=== PATIENT | male | born 1980 | race African-American/Black ===

== ENCOUNTER 2016-12-26 18:45 | Emergency (ER) | payer OTHER ==
[~2016-12-26] VITALS: Ht 177.8 cm; Wt 70.3 kg
[~2016-12-26 18:45] MED LIST: DEPAKOTE; KLONOPIN; ZYPREXA
--- NOTE | 2016-12-26 18:45 | NUR ---
MEDICAL CLEARANCE FOR [facility] VNSCOT[facility] NOTED, VSS, WAITING FOR MD EVAL.
[2016-12-26 19:41] LABS: BASOPHILS # (AUTO) 0.1 /CMM (0.0-0.2); BASOPHILS % (AUTO) 1.3 % (0.0-2.0); EOSINOPHILS # (AUTO) 0.1 /CMM (0.0-0.7); EOSINOPHILS % (AUTO) 0.7 % (0.0-6.0); HEMATOCRIT 49 % (39-51); HEMOGLOBIN 16.5 g/dL (13.5-17.5); LYMPHOCYTES # (AUTO) 2.5 /CMM (0.8-4.8); LYMPHOCYTES % (AUTO) 25.6 % (20.0-44.0); MEAN CORPUSCULAR HEMOGLOBIN 31 PG (26.0-33.0); MEAN CORPUSCULAR HGB CONC 34 g/dl (31.0-36.0); MEAN CORPUSCULAR VOLUME 92 fL (80-96); MONOCYTES # (AUTO) 0.4 /CMM (0.1-1.30); MONOCYTES % (AUTO) 3.7 % (2.0-12.0); NEUTROPHILS # (AUTO) 6.8 /CMM (1.8-8.9); NEUTROPHILS % (AUTO) 68.7 % (43.0-81.0); PLATELET COUNT (AUTO) 235 /CMM (150-450); RDW COEFFICIENT OF VARIATION 14.1 (11.5-15.0); WHITE BLOOD COUNT (AUTO) 9.9 K/uL (4.3-11.0)
[2016-12-26 19:59] LABS: ALANINE AMINOTRANSFERASE 24 U/L (12-78); ALBUMIN 4.3 g/dL (3.4-5.0); ALCOHOL, BLOOD < 3 mg/dL (0-0); ALKALINE PHOSPHATASE 96 U/L (46-116); ASPARTATE AMINOTRANSFERASE 35 U/L (15-37); BILIRUBIN,DIRECT 0.1 mg/dL (0.0-0.2); BILIRUBIN,TOTAL 0.6 mg/dL (0.2-1.0); CALCIUM, SERUM 9.7 mg/dL (8.5-10.1); CARBON DIOXIDE 30 mmol/L (21-32); CHLORIDE 102 mmol/L (98-107); CREATININE 1.2 mg/dL (0.6-1.3); GLUCOSE 87 mg/dL (74-106); POTASSIUM 3.9 mmol/L (3.5-5.1); SALICYLATE 3.5 mg/dL (2.8-20.0); SODIUM SERUM 139 mmol/L (136-145); TOTAL PROTEIN, SERUM 8.3 g/dL (6.4-8.2); UREA NITROGEN, BLOOD 18 mg/dL (7-18)
[2016-12-26 20:08] LABS: APPEARANCE,URINE CLEAR (CLEAR); BILIRUBIN,URINE NEGATIVE (NEGATIVE); BLOOD, URINE NEGATIVE Ery/uL (NEGATIVE); COLOR,URINE YELLOW (YELLOW); KETONES,URINE TRACE (NEGATIVE); LEUKOCYTE ESTERASE ,URINE NEGATIVE (NEGATIVE); NITRITE, URINE NEGATIVE (NEGATIVE); PROTEIN,URINE NEGATIVE (NEGATIVE); UGLUCOSE NEGATIVE (NEGATIVE); UROBILINOGEN,URINE 0.2 EU/dL (0.2)
[2016-12-26 20:09] LABS: ACETAMINOPHEN < 2 ug/ml (10-30)
[2016-12-26 20:49] LABS: BACTERIA,URINE None seen /HPF (None Seen); RBC,URINE NONE SEEN /HPF (0-2); SQUAMOUS EPITHELIAL CELL,UR Few /HPF (None Seen); WBC,URINE NONE SEEN /HPF (0-3)
--- NOTE | 2016-12-26 21:59 | NUR ---
Patient is resting comfortably in bed with eyes closed. Easily aroused. VSS
[2016-12-26 22:22] VITALS: BP 139/87
== END 2016-12-26 22:25 | disposition home or self-care (01) ==
LOC: ER 18:51
DX: F32.9 Major depressive disorder, single episode, unspecified (principal); R45.851 Suicidal ideations; F17.200 Nicotine dependence, unspecified, uncomplicated; F31.9 Bipolar disorder, unspecified; Z98.890 Other specified postprocedural states
CPT/HCPCS: 36415; 80048; 80076; 80305; 80329; 81001; 85025; 99284; A4606; G0480 ×2; Z7610; 81000-TC

== ENCOUNTER 2017-01-07 05:59 | Emergency (ER) | payer OTHER ==
--- NOTE | 2017-01-07 06:32 | NUR ---
CALLED FOR PT IN WR. INFORMED PT STEPPED OUT FOR CIGARETTE.
--- NOTE | 2017-01-07 06:57 | NUR ---
INFORMED BY ADMITTING STAFF PT LEFT.
== END 2017-01-07 06:59 | disposition left against medical advice (07) ==
LOC: ER 06:03
DX: Z53.21 Procedure and treatment not carried out due to patient leaving prior to being seen by health care provider (principal)

== ENCOUNTER 2017-02-11 17:14 | Emergency (ER) | payer OTHER ==
[~2017-02-11] VITALS: Ht 177.8 cm; Wt 72.6 kg
--- NOTE | 2017-02-11 17:20 | NUR ---
FOR MEDICAL CLEARANCE, PATIENT STATES THAT HE IS DEPRESSED ,PER PT " I WANT PACIFICA, WHEN I'M MEDICALLY CLEARED", NAD NOTED, VSS, RESP EVEN AND UNLABORED, WAITING FOR MD NJ
--- NOTE | 2017-02-11 18:40 | NUR ---
CALLED GABRIELLA FOR CRISIS TEAM NASREENALSONY, ETA ONE HOUR
[2017-02-11 18:54] LABS: BASOPHILS % (AUTO) 0.5 % (0.0-2.0); EOSINOPHILS # (AUTO) 0.1 /CMM (0.0-0.7); EOSINOPHILS % (AUTO) 0.7 % (0.0-6.0); HEMATOCRIT 43 % (39-51); HEMOGLOBIN 14.9 g/dL (13.5-17.5); LYMPHOCYTES # (AUTO) 2.7 /CMM (0.8-4.8); LYMPHOCYTES % (AUTO) 33.1 % (20.0-44.0); MEAN CORPUSCULAR HEMOGLOBIN 31 PG (26.0-33.0); MEAN CORPUSCULAR HGB CONC 35 g/dl (31.0-36.0); MEAN CORPUSCULAR VOLUME 89 fL (80-96); MONOCYTES # (AUTO) 0.5 /CMM (0.1-1.30); MONOCYTES % (AUTO) 6.8 % (2.0-12.0); NEUTROPHILS # (AUTO) 4.8 /CMM (1.8-8.9); NEUTROPHILS % (AUTO) 58.9 % (43.0-81.0); PLATELET COUNT (AUTO) 286 /CMM (150-450); WHITE BLOOD COUNT (AUTO) 8.1 K/uL (4.3-11.0)
[2017-02-11 18:55] LABS: APPEARANCE,URINE Clear (CLEAR); BILIRUBIN,URINE Negative (NEGATIVE); BLOOD, URINE Negative Ery/uL (NEGATIVE); COLOR,URINE Yellow (YELLOW); KETONES,URINE Negative (NEGATIVE); LEUKOCYTE ESTERASE ,URINE Negative (NEGATIVE); NITRITE, URINE Negative (NEGATIVE); PH,URINE 6.5 (5.0-8.0); PROTEIN,URINE Negative (NEGATIVE); UGLUCOSE Negative (NEGATIVE); UROBILINOGEN,URINE 0.2 EU/dL (0.2)
[2017-02-11 19:47] LABS: CALCIUM, SERUM 9.5 mg/dL (8.5-10.1); CREATININE 0.9 mg/dL (0.6-1.3); POTASSIUM 4.7 mmol/L (3.5-5.1)
[2017-02-11 19:53] LABS: ALBUMIN 3.9 g/dL (3.4-5.0); BILIRUBIN,DIRECT 0.1 mg/dL (0.0-0.2); BILIRUBIN,TOTAL 0.4 mg/dL (0.2-1.0); SALICYLATE 1.8 mg/dL (2.8-20.0); TOTAL PROTEIN, SERUM 8.1 g/dL (6.4-8.2)
--- NOTE | 2017-02-11 20:54 | NUR ---
REPORT GIVEN TO MAYCO, FROM [facility]
[2017-02-11 21:22] VITALS: BP 119/94
--- NOTE | 2017-02-11 21:29 | NUR ---
Patient Tr[facility] to [facility] Physician: DR. LAMB.
== END 2017-02-11 21:28 ==
LOC: ER 17:17
DX: R45.851 Suicidal ideations (principal); F31.9 Bipolar disorder, unspecified; F17.210 Nicotine dependence, cigarettes, uncomplicated
CPT/HCPCS: 36415; 80048; 80076; 80305; 80329; 81001; 85025; 99285; 99406; A4606; G0480 ×2; J7030; Z7610; 81000-TC

== ENCOUNTER 2017-02-18 02:51 | Emergency (ER) | payer OTHER ==
[~2017-02-18] VITALS: Ht 177.8 cm; Wt 72.6 kg
--- NOTE | 2017-02-18 03:21 | NUR ---
BB SELF; SI WITH PLAN, I WANT TO OD ON RX PILLS. PT AOX3 RR EVEN AND UNLABORED. NO SOB NOTED NAD NOTED. NO NVD AT THIS TIME. PT NOT DIAPHORETIC. PT WAITING FOR MD NJ. PT PLACED ON SAFETY PRECAUTIONS.
--- NOTE | 2017-02-18 03:22 | NUR ---
INFORMED LAB FOR BLOOD DRAW
[2017-02-18 03:39] LABS: BASOPHILS % (AUTO) 0.4 % (0.0-2.0); EOSINOPHILS # (AUTO) 0.1 /CMM (0.0-0.7); EOSINOPHILS % (AUTO) 0.7 % (0.0-6.0); HEMATOCRIT 44 % (39-51); HEMOGLOBIN 14.5 g/dL (13.5-17.5); LYMPHOCYTES # (AUTO) 2.1 /CMM (0.8-4.8); LYMPHOCYTES % (AUTO) 23.3 % (20.0-44.0); MEAN CORPUSCULAR HEMOGLOBIN 31 PG (26.0-33.0); MEAN CORPUSCULAR HGB CONC 33 g/dl (31.0-36.0); MEAN CORPUSCULAR VOLUME 92 fL (80-96); MONOCYTES # (AUTO) 0.5 /CMM (0.1-1.30); MONOCYTES % (AUTO) 5.7 % (2.0-12.0); NEUTROPHILS # (AUTO) 6.4 /CMM (1.8-8.9); NEUTROPHILS % (AUTO) 69.9 % (43.0-81.0); PLATELET COUNT (AUTO) 392 /CMM (150-450); RDW COEFFICIENT OF VARIATION 13.8 (11.5-15.0); RED BLOOD CELL COUNT(AUTO) 4.75 MIL/uL (4.5-6.0); WHITE BLOOD COUNT (AUTO) 9.1 K/uL (4.3-11.0)
[2017-02-18 03:58] LABS: ALANINE AMINOTRANSFERASE 33 U/L (12-78); ALBUMIN 3.9 g/dL (3.4-5.0); ALCOHOL, BLOOD < 3 mg/dL (0-0); ALKALINE PHOSPHATASE 86 U/L (46-116); ASPARTATE AMINOTRANSFERASE 22 U/L (15-37); BILIRUBIN,DIRECT 0.1 mg/dL (0.0-0.2); BILIRUBIN,TOTAL 0.2 mg/dL (0.2-1.0); CALCIUM, SERUM 9.3 mg/dL (8.5-10.1); CARBON DIOXIDE 32 mmol/L (21-32); CHLORIDE 106 mmol/L (98-107); CREATININE 1.4 mg/dL (0.6-1.3); GLUCOSE 112 mg/dL (74-106); POTASSIUM 4.3 mmol/L (3.5-5.1); SODIUM SERUM 143 mmol/L (136-145); UREA NITROGEN, BLOOD 16 mg/dL (7-18)
[2017-02-18 04:00] LABS: ACETAMINOPHEN 0 ug/ml (10-30); SALICYLATE 1.3 mg/dL (2.8-20.0)
[2017-02-18 05:15] LABS: APPEARANCE,URINE CLEAR (CLEAR); BILIRUBIN,URINE NEGATIVE (NEGATIVE); BLOOD, URINE NEGATIVE Ery/uL (NEGATIVE); COLOR,URINE YELLOW (YELLOW); KETONES,URINE TRACE (NEGATIVE); LEUKOCYTE ESTERASE ,URINE NEGATIVE (NEGATIVE); NITRITE, URINE NEGATIVE (NEGATIVE); PH,URINE 7.5 (5.0-8.0); PROTEIN,URINE NEGATIVE (NEGATIVE); UGLUCOSE NEGATIVE (NEGATIVE)
[2017-02-18 05:21] LABS: BACTERIA,URINE None seen /HPF (None Seen); RBC,URINE NONE SEEN /HPF (0-2); SQUAMOUS EPITHELIAL CELL,UR Rare /HPF (None Seen); WBC,URINE 0-2 /HPF (0-3)
--- NOTE | 2017-02-18 05:30 | NUR ---
ART AT BEDSIDE SPEAKING TO PT FOR EVAL.
--- NOTE | 2017-02-18 07:18 | NUR ---
REPORT GIVEN TO GRACIELA WINTERS FOR PRINCE
--- NOTE | 2017-02-18 07:45 | NUR ---
Patient is resting comfortably in bed with eyes closed. Easily aroused. VSS
--- NOTE | 2017-02-18 09:34 | NUR ---
Patient is resting comfortably in bed with eyes closed. Easily aroused. VSS
[2017-02-18 11:20] VITALS: BP 128/75
--- NOTE | 2017-02-18 11:27 | NUR ---
CALL BACK FROM [facility], ACEPTED BY DR LAMB
--- NOTE | 2017-02-18 11:38 | NUR ---
DULCE MARIA CALLED, ETA 1245 PER [place]
--- NOTE | 2017-02-18 12:40 | NUR ---
REPORT GIVEN TO ANALI [facility] OF [facility]. REPORT ALSO GIVEN TO SURAJ JURADO [facility] FOR TRANSPORT.
== END 2017-02-18 13:00 ==
LOC: ER 02:55
DX: R45.851 Suicidal ideations (principal); F31.9 Bipolar disorder, unspecified; F19.10 Other psychoactive substance abuse, uncomplicated; F12.10 Cannabis abuse, uncomplicated; F14.10 Cocaine abuse, uncomplicated; F10.10 Alcohol abuse, uncomplicated; F17.200 Nicotine dependence, unspecified, uncomplicated; Z98.890 Other specified postprocedural states
CPT/HCPCS: 36415; 80048; 80076; 80305; 80329; 81001; 85025; 99285; A4606; G0480 ×2; Z7610; 81000-TC

== ENCOUNTER 2017-03-22 03:21 | Emergency (ER) | payer OTHER ==
[~2017-03-22] VITALS: Ht 177.8 cm; Wt 77.1 kg
--- NOTE | 2017-03-22 03:26 | NUR ---
PT TO ER BED 6. PT BIBRA FROM A GAS STATION +ETOH C/O ABD PAIN. PT PLACED ON HAT PRESSER. VSS/RESP EVEN UNLABORED/NAD NOTED/SKIN WARM AND DRY/DENIES N-V-D/AOX4. AWAITING MD NJ.
--- NOTE | 2017-03-22 03:40 | NUR ---
LAB AT BEDSIDE FOR DRAW.
[2017-03-22 03:48] LABS: BASOPHILS # (AUTO) 0.1 /CMM (0.0-0.2); BASOPHILS % (AUTO) 1.4 % (0.0-2.0); EOSINOPHILS # (AUTO) 0.1 /CMM (0.0-0.7); EOSINOPHILS % (AUTO) 1.6 % (0.0-6.0); HEMATOCRIT 41 % (39-51); HEMOGLOBIN 13.8 g/dL (13.5-17.5); LYMPHOCYTES # (AUTO) 3.5 /CMM (0.8-4.8); LYMPHOCYTES % (AUTO) 39.3 % (20.0-44.0); MEAN CORPUSCULAR HEMOGLOBIN 31 PG (26.0-33.0); MEAN CORPUSCULAR HGB CONC 34 g/dl (31.0-36.0); MEAN CORPUSCULAR VOLUME 90 fL (80-96); MONOCYTES # (AUTO) 0.4 /CMM (0.1-1.30); MONOCYTES % (AUTO) 4.8 % (2.0-12.0); NEUTROPHILS # (AUTO) 4.7 /CMM (1.8-8.9); NEUTROPHILS % (AUTO) 52.9 % (43.0-81.0); PLATELET COUNT (AUTO) 253 /CMM (150-450); RDW COEFFICIENT OF VARIATION 15.2 (11.5-15.0); RED BLOOD CELL COUNT(AUTO) 4.51 MIL/uL (4.5-6.0); WHITE BLOOD COUNT (AUTO) 8.9 K/uL (4.3-11.0)
[2017-03-22 03:57] LABS: CALCIUM, SERUM 9.5 mg/dL (8.5-10.1); CREATININE 1.2 mg/dL (0.6-1.3); POTASSIUM 3.3 mmol/L (3.5-5.1)
[2017-03-22 04:03] LABS: ALBUMIN 4.1 g/dL (3.4-5.0); BILIRUBIN,DIRECT 0.1 mg/dL (0.0-0.2); BILIRUBIN,TOTAL 0.4 mg/dL (0.2-1.0); TOTAL PROTEIN, SERUM 7.8 g/dL (6.4-8.2)
[2017-03-22 04:04] LABS: SALICYLATE 1.6 mg/dL (2.8-20.0)
--- NOTE | 2017-03-22 06:01 | NUR ---
PT RESTING QUIETLY, AROUSES TO VOICE. VSS.
--- NOTE | 2017-03-22 07:05 | NUR ---
UNABLE TO OBTAIN URINE FROM PATIENT, MADE AWARE. NO NEW ORDERS RECEIVED.
--- NOTE | 2017-03-22 07:25 | NUR ---
ENDORSED TO GRACIELA MELENDREZ FOR [facility].
--- NOTE | 2017-03-22 07:37 | NUR ---
PATIENT ON BED, ASLEEP. CONNECTED TO TELE MONITOR. VSS
[2017-03-22 12:11] VITALS: BP 126/74
--- NOTE | 2017-03-22 12:11 | NUR ---
Patient discharged to home in stable condition. Written and verbal after care instructions given. Patient verbalizes understanding of instruction.
== END 2017-03-22 12:12 | disposition home or self-care (01) ==
LOC: ER 03:22
DX: F19.10 Other psychoactive substance abuse, uncomplicated (principal); F32.9 Major depressive disorder, single episode, unspecified; F17.200 Nicotine dependence, unspecified, uncomplicated; Z98.890 Other specified postprocedural states
CPT/HCPCS: 36415; 80048-TC; 80076-TC; 85025-TC; A4606; G0480; Z7610

== ENCOUNTER 2017-04-01 03:52 | Emergency (ER) | payer OTHER ==
[~2017-04-01] VITALS: Ht 172.7 cm; Wt 70.3 kg
--- NOTE | 2017-04-01 03:55 | NUR ---
BIBRA 909 C/O "HEARING VOICES" PT DENIES SI /HI. NO SOB. NO PAIN. VSS NAD WILL CONTINUE TO MONITOR FOR ANY CHANGES
[2017-04-01 04:32] LABS: BASOPHILS # (AUTO) 0.1 /CMM (0.0-0.2); BASOPHILS % (AUTO) 0.9 % (0.0-2.0); EOSINOPHILS # (AUTO) 0.1 /CMM (0.0-0.7); EOSINOPHILS % (AUTO) 1.8 % (0.0-6.0); HEMATOCRIT 41 % (39-51); HEMOGLOBIN 13.9 g/dL (13.5-17.5); LYMPHOCYTES # (AUTO) 2.6 /CMM (0.8-4.8); LYMPHOCYTES % (AUTO) 39.6 % (20.0-44.0); MEAN CORPUSCULAR HEMOGLOBIN 31 PG (26.0-33.0); MEAN CORPUSCULAR HGB CONC 34 g/dl (31.0-36.0); MEAN CORPUSCULAR VOLUME 91 fL (80-96); MONOCYTES # (AUTO) 0.5 /CMM (0.1-1.30); MONOCYTES % (AUTO) 7.1 % (2.0-12.0); NEUTROPHILS # (AUTO) 3.4 /CMM (1.8-8.9); NEUTROPHILS % (AUTO) 50.6 % (43.0-81.0); PLATELET COUNT (AUTO) 276 /CMM (150-450); RDW COEFFICIENT OF VARIATION 15.5 (11.5-15.0); RED BLOOD CELL COUNT(AUTO) 4.45 MIL/uL (4.5-6.0); WHITE BLOOD COUNT (AUTO) 6.6 K/uL (4.3-11.0)
[2017-04-01 04:42] LABS: CALCIUM, SERUM 9.3 mg/dL (8.5-10.1); CREATININE 0.9 mg/dL (0.6-1.3)
[2017-04-01 04:47] LABS: ALBUMIN 3.9 g/dL (3.4-5.0); BILIRUBIN,DIRECT 0.1 mg/dL (0.0-0.2); BILIRUBIN,TOTAL 0.2 mg/dL (0.2-1.0); TOTAL PROTEIN, SERUM 7.9 g/dL (6.4-8.2)
[2017-04-01 04:49] LABS: SALICYLATE 2.7 mg/dL (2.8-20.0)
--- NOTE | 2017-04-01 04:50 | NUR ---
LAB AT BEDSIDE FOR BLOOD DRAW
--- NOTE | 2017-04-01 04:55 | NUR ---
PT SLEEPING IN BED WITH NO CHANGE IN CONDITION
[2017-04-01 05:10] LABS: APPEARANCE,URINE CLEAR (CLEAR); BILIRUBIN,URINE NEGATIVE (NEGATIVE); BLOOD, URINE NEGATIVE Ery/uL (NEGATIVE); COLOR,URINE YELLOW (YELLOW); KETONES,URINE NEGATIVE (NEGATIVE); LEUKOCYTE ESTERASE ,URINE NEGATIVE (NEGATIVE); NITRITE, URINE NEGATIVE (NEGATIVE); PH,URINE 5.5 (5.0-8.0); PROTEIN,URINE NEGATIVE (NEGATIVE); UGLUCOSE NEGATIVE (NEGATIVE); UROBILINOGEN,URINE 0.2 EU/dL (0.2)
--- NOTE | 2017-04-01 05:32 | NUR ---
MESSENGER FLOORPERSON P/U URINE SAMPLE
--- NOTE | 2017-04-01 07:00 | NUR ---
PT IS SLEEPING COMFORTABLY IN BED WITH NO ISSUES. ALL NEEDS HAVE BEEN MET. PT IS STABLE. WILL ENDORSE CARE TO AM NURSE
--- NOTE | 2017-04-01 07:55 | NUR ---
CALLED BEVERLY OWENS FOR PSYCH EVAL
--- NOTE | 2017-04-01 09:35 | NUR ---
DON HIGGINS AT BEDSIDE
--- NOTE | 2017-04-01 10:52 | NUR ---
CALLED FOR TRANSPORT. ETA 1130
[2017-04-01 11:33] VITALS: BP 122/76
--- NOTE | 2017-04-01 11:37 | NUR ---
REPORT GIVEN TO EMT AT BEDSIDE. [facility]IV[facility] REPORT. PATIENT LEFT IN STABLE CONDITION WITH AMBULANCE.
== END 2017-04-01 11:39 ==
LOC: ER 03:56
DX: Z04.6 Encounter for general psychiatric examination, requested by authority (principal); F32.9 Major depressive disorder, single episode, unspecified; R45.851 Suicidal ideations; F19.10 Other psychoactive substance abuse, uncomplicated; F17.200 Nicotine dependence, unspecified, uncomplicated; Z60.2 Problems related to living alone
CPT/HCPCS: 36415; 80048; 80076; 80305; 80329; 81001; 85025; 99285; A4606; G0480 ×2; Z7610; 81000-TC

== ENCOUNTER 2017-05-11 02:11 | Emergency (ER) | payer OTHER ==
[~2017-05-11] VITALS: Ht 172.7 cm; Wt 65.8 kg
--- NOTE | 2017-05-11 02:20 | NUR ---
TO BED 11 A 37 YO MALE BBSELF AND REPORTS SI: "I WANT TO STAB MYSELF WITH A KNIFE. MY LIFE HAS JUST SO MUCH STRESS IN MY LIFE." PATIENT WITH HX OF BIPOLAR AND DEPRESSION. VSS. NAD NOTED. SKIN WARM AND DRY. DENIES ANY MEDICAL COMPLAINTS AT THIS TIME. SAFETY MEASURES IN PLACE.
--- NOTE | 2017-05-11 02:45 | NUR ---
UPHOLSTERER LIMOUSINE AND HEARSE Vida at bedside talking to patient.
[2017-05-11 02:50] LABS: BASOPHILS % (AUTO) 0.6 % (0.0-2.0); EOSINOPHILS # (AUTO) 0.1 /CMM (0.0-0.7); EOSINOPHILS % (AUTO) 1.1 % (0.0-6.0); HEMATOCRIT 45 % (39-51); HEMOGLOBIN 15.1 g/dL (13.5-17.5); LYMPHOCYTES # (AUTO) 2.6 /CMM (0.8-4.8); LYMPHOCYTES % (AUTO) 35.1 % (20.0-44.0); MEAN CORPUSCULAR HEMOGLOBIN 30 PG (26.0-33.0); MEAN CORPUSCULAR HGB CONC 34 g/dl (31.0-36.0); MEAN CORPUSCULAR VOLUME 90 fL (80-96); MONOCYTES # (AUTO) 0.6 /CMM (0.1-1.30); MONOCYTES % (AUTO) 8.2 % (2.0-12.0); PLATELET COUNT (AUTO) 267 /CMM (150-450); RDW COEFFICIENT OF VARIATION 15.1 (11.5-15.0); RED BLOOD CELL COUNT(AUTO) 4.97 MIL/uL (4.5-6.0); WHITE BLOOD COUNT (AUTO) 7.3 K/uL (4.3-11.0)
[2017-05-11 02:51] LABS: APPEARANCE,URINE CLEAR (CLEAR); BILIRUBIN,URINE NEGATIVE (NEGATIVE); BLOOD, URINE NEGATIVE Ery/uL (NEGATIVE); COLOR,URINE YELLOW (YELLOW); KETONES,URINE NEGATIVE (NEGATIVE); LEUKOCYTE ESTERASE ,URINE NEGATIVE (NEGATIVE); NITRITE, URINE NEGATIVE (NEGATIVE); PROTEIN,URINE NEGATIVE (NEGATIVE); UGLUCOSE NEGATIVE (NEGATIVE)
[2017-05-11 03:10] LABS: ALBUMIN 4.2 g/dL (3.4-5.0); BILIRUBIN,DIRECT 0.1 mg/dL (0.0-0.2); BILIRUBIN,TOTAL 0.4 mg/dL (0.2-1.0); CREATININE 1.2 mg/dL (0.6-1.3); POTASSIUM 4.2 mmol/L (3.5-5.1); TOTAL PROTEIN, SERUM 8.4 g/dL (6.4-8.2)
[2017-05-11 03:10] LABS: BACTERIA,URINE None seen /HPF (None Seen); RBC,URINE NONE SEEN /HPF (0-2); SQUAMOUS EPITHELIAL CELL,UR Rare /HPF (None Seen); WBC,URINE 0-2 /HPF (0-3)
--- NOTE | 2017-05-11 05:07 | NUR ---
Patient discharged in stable condition. Written and verbal after care instructions given. Patient verbalizes understanding of instruction and said [facility]. Obtained verbal safety contact from patient. Patient is ambulatory with steady gait. vss. nad noted. no further complaints.
[2017-05-11 05:08] VITALS: BP 140/87
== END 2017-05-11 05:08 | disposition home or self-care (01) ==
LOC: ER 02:11
DX: R45.851 Suicidal ideations (principal); F31.9 Bipolar disorder, unspecified; F15.10 Other stimulant abuse, uncomplicated; F12.10 Cannabis abuse, uncomplicated; F14.10 Cocaine abuse, uncomplicated; F19.10 Other psychoactive substance abuse, uncomplicated; F10.10 Alcohol abuse, uncomplicated; F17.200 Nicotine dependence, unspecified, uncomplicated; Z98.890 Other specified postprocedural states
CPT/HCPCS: 36415; 80048-TC; 80076-TC; 80305; 81000-TC; 85025-TC; A4606; G0480; Z7610

== ENCOUNTER 2017-06-11 06:11 | Emergency (ER) | payer OTHER ==
[~2017-06-11] VITALS: Ht 172.7 cm; Wt 68.0 kg
[2017-06-11 06:26] VITALS: BP 127/99
[2017-06-11 07:16] LABS: BASOPHILS # (AUTO) 0.1 /CMM (0.0-0.2); BASOPHILS % (AUTO) 0.7 % (0.0-2.0); EOSINOPHILS % (AUTO) 1.2 % (0.0-6.0); HEMATOCRIT 43 % (39-51); HEMOGLOBIN 14.7 g/dL (13.5-17.5); LYMPHOCYTES # (AUTO) 2.2 /CMM (0.8-4.8); LYMPHOCYTES % (AUTO) 27.9 % (20.0-44.0); MEAN CORPUSCULAR HGB CONC 34 g/dl (31.0-36.0); MEAN CORPUSCULAR VOLUME 89 fL (80-96); MONOCYTES # (AUTO) 0.2 /CMM (0.1-1.30); MONOCYTES % (AUTO) 2.2 % (2.0-12.0); NEUTROPHILS # (AUTO) 5.4 /CMM (1.8-8.9); PLATELET COUNT (AUTO) 291 /CMM (150-450); RDW COEFFICIENT OF VARIATION 14.9 (11.5-15.0); RED BLOOD CELL COUNT(AUTO) 4.85 MIL/uL (4.5-6.0)
[2017-06-11 07:26] LABS: CALCIUM, SERUM 9.5 mg/dL (8.5-10.1); CARBON DIOXIDE 30 mmol/L (21-32); CHLORIDE 104 mmol/L (98-107); CREATININE 1.2 mg/dL (0.6-1.3); GLUCOSE 65 mg/dL (74-106); POTASSIUM 4.2 mmol/L (3.5-5.1); SODIUM SERUM 139 mmol/L (136-145); UREA NITROGEN, BLOOD 15 mg/dL (7-18)
[2017-06-11 07:28] LABS: ALCOHOL, BLOOD < 3 mg/dL (0-0)
[2017-06-11 07:31] LABS: SALICYLATE 2.4 mg/dL (2.8-20.0)
== END 2017-06-11 11:58 ==
LOC: ER 06:14
DX: R45.851 Suicidal ideations (principal); F19.10 Other psychoactive substance abuse, uncomplicated; F20.9 Schizophrenia, unspecified; F31.9 Bipolar disorder, unspecified; F17.200 Nicotine dependence, unspecified, uncomplicated; Z60.2 Problems related to living alone
CPT/HCPCS: 36415; 80048-TC; 80305; 82600; 85025-TC; A4606; G0480; Z7610

== ENCOUNTER 2017-06-18 21:21 | Emergency (ER) | payer OTHER ==
[~2017-06-18] VITALS: Ht 172.7 cm; Wt 65.8 kg
--- NOTE | 2017-06-18 21:21 | NUR ---
[facility] C/O +SI - HI PLANS TO RUN INTO TRAFFIC. S NAD A/OX4. WILL CONTINUE TO MONITOR FOR ANY CHANGES DURING THE SHIFT.
--- NOTE | 2017-06-18 21:25 | NUR ---
CALLED PT IN WR X3. NO RESPONSE.
--- NOTE | 2017-06-18 21:59 | NUR ---
URINE COLLECTED. 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
[2017-06-18 22:43] LABS: BASOPHILS # (AUTO) 0.1 /CMM (0.0-0.2); BASOPHILS % (AUTO) 0.4 % (0.0-2.0); EOSINOPHILS % (AUTO) 0.2 % (0.0-6.0); HEMATOCRIT 43 % (39-51); HEMOGLOBIN 14.4 g/dL (13.5-17.5); LYMPHOCYTES # (AUTO) 2.1 /CMM (0.8-4.8); LYMPHOCYTES % (AUTO) 15.3 % (20.0-44.0); MEAN CORPUSCULAR HGB CONC 34 g/dl (31.0-36.0); MEAN CORPUSCULAR VOLUME 89 fL (80-96); MONOCYTES # (AUTO) 0.5 /CMM (0.1-1.30); MONOCYTES % (AUTO) 3.4 % (2.0-12.0); NEUTROPHILS # (AUTO) 10.7 /CMM (1.8-8.9); NEUTROPHILS % (AUTO) 80.7 % (43.0-81.0); PLATELET COUNT (AUTO) 295 /CMM (150-450); RDW COEFFICIENT OF VARIATION 14.1 (11.5-15.0); RED BLOOD CELL COUNT(AUTO) 4.75 MIL/uL (4.5-6.0); WHITE BLOOD COUNT (AUTO) 13.4 K/uL (4.3-11.0)
[2017-06-18 22:49] LABS: CALCIUM, SERUM 9.4 mg/dL (8.5-10.1); CARBON DIOXIDE 31 mmol/L (21-32); CHLORIDE 102 mmol/L (98-107); CREATININE 1.2 mg/dL (0.6-1.3); GLUCOSE 80 mg/dL (74-106); SODIUM SERUM 139 mmol/L (136-145); UREA NITROGEN, BLOOD 14 mg/dL (7-18)
[2017-06-18 23:20] LABS: ACETAMINOPHEN 2 ug/ml (10-30); ALANINE AMINOTRANSFERASE 30 U/L (12-78); ALBUMIN 4.4 g/dL (3.4-5.0); ALCOHOL, BLOOD < 3 mg/dL (0-0); ALKALINE PHOSPHATASE 92 U/L (46-116); ASPARTATE AMINOTRANSFERASE 37 U/L (15-37); BILIRUBIN,DIRECT 0.1 mg/dL (0.0-0.2); BILIRUBIN,TOTAL 0.5 mg/dL (0.2-1.0); SALICYLATE 2.9 mg/dL (2.8-20.0); TOTAL PROTEIN, SERUM 8.3 g/dL (6.4-8.2)
--- NOTE | 2017-06-19 01:29 | NUR ---
ART AT BEDSIDE FOR PSYCH EVAL
[2017-06-19 01:53] LABS: APPEARANCE,URINE CLEAR (CLEAR); BILIRUBIN,URINE NEGATIVE (NEGATIVE); BLOOD, URINE NEGATIVE Ery/uL (NEGATIVE); COLOR,URINE YELLOW (YELLOW); KETONES,URINE NEGATIVE (NEGATIVE); LEUKOCYTE ESTERASE ,URINE NEGATIVE (NEGATIVE); NITRITE, URINE NEGATIVE (NEGATIVE); PROTEIN,URINE NEGATIVE (NEGATIVE); UGLUCOSE NEGATIVE (NEGATIVE); UROBILINOGEN,URINE 0.2 EU/dL (0.2)
[2017-06-19 02:55] VITALS: BP 116/78
--- NOTE | 2017-06-19 02:55 | NUR ---
REPORT GIVEN TO ZO WELSH
== END 2017-06-19 04:26 ==
LOC: ER 21:23
DX: F31.9 Bipolar disorder, unspecified (principal); R45.851 Suicidal ideations; F20.9 Schizophrenia, unspecified; F10.10 Alcohol abuse, uncomplicated; F17.200 Nicotine dependence, unspecified, uncomplicated; F15.10 Other stimulant abuse, uncomplicated; F14.10 Cocaine abuse, uncomplicated; F12.10 Cannabis abuse, uncomplicated
CPT/HCPCS: 36415; 80048-TC; 80076-TC; 80305; 81000-TC; 85025-TC; A4606; G0480; Z7610

== ENCOUNTER 2017-06-26 23:33 | Emergency (ER) | payer OTHER ==
[~2017-06-26] VITALS: Ht 172.7 cm; Wt 65.8 kg
[2017-06-27 00:39] VITALS: BP 138/99
--- NOTE | 2017-06-27 00:51 | NUR ---
SUICIDE PRECAUTIONS IN PLACE. PT BELONGINGS PUT IN NURSES STATION.
[2017-06-27 01:08] LABS: BASOPHILS # (AUTO) 0.1 /CMM (0.0-0.2); EOSINOPHILS % (AUTO) 0.7 % (0.0-6.0); HEMATOCRIT 43 % (39-51); HEMOGLOBIN 14.7 g/dL (13.5-17.5); LYMPHOCYTES # (AUTO) 2.7 /CMM (0.8-4.8); LYMPHOCYTES % (AUTO) 24.9 % (20.0-44.0); MEAN CORPUSCULAR HGB CONC 34 g/dl (31.0-36.0); MEAN CORPUSCULAR VOLUME 90 fL (80-96); MONOCYTES # (AUTO) 0.8 /CMM (0.1-1.30); MONOCYTES % (AUTO) 7.7 % (2.0-12.0); NEUTROPHILS # (AUTO) 7.1 /CMM (1.8-8.9); NEUTROPHILS % (AUTO) 65.7 % (43.0-81.0); PLATELET COUNT (AUTO) 294 /CMM (150-450); RDW COEFFICIENT OF VARIATION 14.8 (11.5-15.0); RED BLOOD CELL COUNT(AUTO) 4.85 MIL/uL (4.5-6.0); WHITE BLOOD COUNT (AUTO) 10.9 K/uL (4.3-11.0)
[2017-06-27 01:10] LABS: APPEARANCE,URINE CLEAR (CLEAR); BILIRUBIN,URINE 1+ (NEGATIVE); BLOOD, URINE NEGATIVE Ery/uL (NEGATIVE); COLOR,URINE DARK YELLOW (YELLOW); KETONES,URINE NEGATIVE (NEGATIVE); LEUKOCYTE ESTERASE ,URINE NEGATIVE (NEGATIVE); NITRITE, URINE NEGATIVE (NEGATIVE); PH,URINE 5.5 (5.0-8.0); PROTEIN,URINE TRACE mg/dl (NEGATIVE); UGLUCOSE NEGATIVE (NEGATIVE); UROBILINOGEN,URINE 0.2 EU/dL (0.2)
[2017-06-27 01:17] LABS: BACTERIA,URINE Few /HPF (None Seen); CALCIUM OXALATE CRYSTALS,UR Few /HPF (None Seen); HYALINE CASTS, URINE Few /LPF (None Seen); MUCUS,URINE Few /LPF (None Seen); RBC,URINE 0-2 /HPF (0-2); SQUAMOUS EPITHELIAL CELL,UR Few /HPF (None Seen); WBC,URINE 0-2 /HPF (0-3)
[2017-06-27 01:26] LABS: CARBON DIOXIDE 28 mmol/L (21-32); CHLORIDE 100 mmol/L (98-107); CREATININE 1.4 mg/dL (0.6-1.3); GLUCOSE 91 mg/dL (74-106); POTASSIUM 4.2 mmol/L (3.5-5.1); SODIUM SERUM 137 mmol/L (136-145); UREA NITROGEN, BLOOD 19 mg/dL (7-18)
[2017-06-27 01:36] LABS: ALANINE AMINOTRANSFERASE 34 U/L (12-78); ALBUMIN 4.8 g/dL (3.4-5.0); ALCOHOL, BLOOD < 3 mg/dL (0-0); ALKALINE PHOSPHATASE 94 U/L (46-116); ASPARTATE AMINOTRANSFERASE 53 U/L (15-37); BILIRUBIN,DIRECT 0.1 mg/dL (0.0-0.2); BILIRUBIN,TOTAL 0.4 mg/dL (0.2-1.0); SALICYLATE 3.2 mg/dL (2.8-20.0); TOTAL PROTEIN, SERUM 8.9 g/dL (6.4-8.2)
[2017-06-27 01:37] LABS: ACETAMINOPHEN 0 ug/ml (10-30)
--- NOTE | 2017-06-27 01:49 | NUR ---
CALLED [facility] FOR PSYCH EVAL.
== END 2017-06-27 06:47 | disposition home or self-care (01) ==
LOC: ER 23:34
DX: F19.10 Other psychoactive substance abuse, uncomplicated (principal); R45.851 Suicidal ideations; F31.9 Bipolar disorder, unspecified; F20.9 Schizophrenia, unspecified; F17.200 Nicotine dependence, unspecified, uncomplicated; Z98.890 Other specified postprocedural states
CPT/HCPCS: 36415; 80048-TC; 80076-TC; 80305; 81000-TC; 85025-TC; A4606; G0480; Z7610

== ENCOUNTER 2017-06-27 23:45 | Emergency (ER) | payer OTHER ==
[~2017-06-27] VITALS: Ht 172.7 cm; Wt 65.8 kg
--- NOTE | 2017-06-28 00:03 | NUR ---
PT AMBULATORY TO ER BED 13. BIB SELF FOR MEDICAL CLEARANCE FOR [facility]. ADMITS TO DRINKING/ MARIJUANA TODAY AND TAKING COCAINE A FEW DAYS AGO. PT PLACED ON TILE PRESSER. VSS/RESP EVEN UNLABORED/NAD NOTED/SKIN WARM AND DRY/AFEBRILE/DENIES N-V-D/AOX4. AWAITING MD NJ
--- NOTE | 2017-06-28 00:10 | NUR ---
URINE SPECIMEN OBTAINED AND SENT TO THE LAB.
--- NOTE | 2017-06-28 00:25 | NUR ---
LAB AT BEDSIDE FOR DRAW.
[2017-06-28 00:33] LABS: BASOPHILS % (AUTO) 0.7 % (0.0-2.0); EOSINOPHILS % (AUTO) 1.1 % (0.0-6.0); HEMATOCRIT 42 % (39-51); HEMOGLOBIN 14.3 g/dL (13.5-17.5); LYMPHOCYTES # (AUTO) 2.2 /CMM (0.8-4.8); LYMPHOCYTES % (AUTO) 29.9 % (20.0-44.0); MEAN CORPUSCULAR HGB CONC 34 g/dl (31.0-36.0); MEAN CORPUSCULAR VOLUME 89 fL (80-96); MONOCYTES # (AUTO) 0.7 /CMM (0.1-1.30); MONOCYTES % (AUTO) 9.7 % (2.0-12.0); NEUTROPHILS # (AUTO) 4.3 /CMM (1.8-8.9); NEUTROPHILS % (AUTO) 58.6 % (43.0-81.0); PLATELET COUNT (AUTO) 290 /CMM (150-450); RDW COEFFICIENT OF VARIATION 14.8 (11.5-15.0); RED BLOOD CELL COUNT(AUTO) 4.71 MIL/uL (4.5-6.0); WHITE BLOOD COUNT (AUTO) 7.3 K/uL (4.3-11.0)
[2017-06-28 00:38] LABS: APPEARANCE,URINE CLEAR (CLEAR); BILIRUBIN,URINE NEGATIVE (NEGATIVE); BLOOD, URINE NEGATIVE Ery/uL (NEGATIVE); COLOR,URINE YELLOW (YELLOW); KETONES,URINE NEGATIVE (NEGATIVE); LEUKOCYTE ESTERASE ,URINE NEGATIVE (NEGATIVE); NITRITE, URINE NEGATIVE (NEGATIVE); PROTEIN,URINE NEGATIVE (NEGATIVE); UGLUCOSE NEGATIVE (NEGATIVE)
[2017-06-28 00:41] LABS: BACTERIA,URINE Few /HPF (None Seen); RBC,URINE 0-2 /HPF (0-2); SQUAMOUS EPITHELIAL CELL,UR Rare /HPF (None Seen); WBC,URINE 0-2 /HPF (0-3)
[2017-06-28 00:43] LABS: CALCIUM, SERUM 9.1 mg/dL (8.5-10.1); CARBON DIOXIDE 29 mmol/L (21-32); CHLORIDE 103 mmol/L (98-107); CREATININE 1.5 mg/dL (0.6-1.3); GLUCOSE 148 mg/dL (74-106); POTASSIUM 4.2 mmol/L (3.5-5.1); SODIUM SERUM 141 mmol/L (136-145); UREA NITROGEN, BLOOD 23 mg/dL (7-18)
[2017-06-28 00:49] LABS: ALANINE AMINOTRANSFERASE 32 U/L (12-78); ALBUMIN 4.2 g/dL (3.4-5.0); ALCOHOL, BLOOD < 3 mg/dL (0-0); ALKALINE PHOSPHATASE 91 U/L (46-116); ASPARTATE AMINOTRANSFERASE 57 U/L (15-37); BILIRUBIN,TOTAL 0.3 mg/dL (0.2-1.0); TOTAL PROTEIN, SERUM 8.3 g/dL (6.4-8.2)
--- NOTE | 2017-06-28 02:05 | NUR ---
PT RESTING QUIETLY, AROUSES EASILY TO VOICE. VSS, RN TO CONTINUE MONITORING. SAFETY/COMFORT MEASURES PROVIDED.
--- NOTE | 2017-06-28 05:02 | NUR ---
LABS AT BEDSIDE FOR BLOOD DRAW
[2017-06-28 05:16] LABS: CALCIUM, SERUM 8.6 mg/dL (8.5-10.1); CREATININE 1.3 mg/dL (0.6-1.3)
--- NOTE | 2017-06-28 05:35 | NUR ---
CALLED [facility], INTAKE COORD NOT AVAILABLE UNTIL 7:30AM.
--- NOTE | 2017-06-28 06:44 | NUR ---
PT RESTING QUIETLY, AROUSES EASILY TO VOICE. VSS, RN TO CONTINUE MONITORING. SAFETY/COMFORT MEASURES PROVIDED.
--- NOTE | 2017-06-28 07:20 | NUR ---
REPORT GIVEN TO GRACIELA GONZALES FOR [facility].
--- NOTE | 2017-06-28 07:21 | NUR ---
RECEIVED REPORT FOR [facility].
--- NOTE | 2017-06-28 13:30 | NUR ---
PATIENT DENIES HI/SI AT THIS TIME. AMBULATING WITH STABLE GAIT. Patient discharged to home in stable condition. Written and verbal after care instructions given. Patient verbalizes understanding of instruction.
[2017-06-28 13:38] VITALS: BP 129/81
== END 2017-06-28 13:39 | disposition home or self-care (01) ==
LOC: ER 23:47
DX: Z04.6 Encounter for general psychiatric examination, requested by authority (principal); N28.9 Disorder of kidney and ureter, unspecified; R45.851 Suicidal ideations; F19.10 Other psychoactive substance abuse, uncomplicated; F31.9 Bipolar disorder, unspecified; F20.9 Schizophrenia, unspecified; F17.200 Nicotine dependence, unspecified, uncomplicated; Z98.890 Other specified postprocedural states
CPT/HCPCS: 36415; 80048-TC; 80076-TC; 80305; 81000-TC; 85025-TC; A4606; G0480; Z7610

== ENCOUNTER 2018-08-28 04:27 | Emergency (ER) | payer SELFPAY ==
[~2018-08-28] VITALS: Ht 175.3 cm; Wt 70.3 kg
--- NOTE | 2018-08-28 04:38 | NUR ---
CALLED IN WR, NO ANSWER.
[2018-08-28 04:48] VITALS: BP 135/88
--- NOTE | 2018-08-28 04:48 | NUR ---
PT BIBSELF FROM STREET C/O BILAT KNEE/FEET PAIN X 3 DAYS. PT IS AAOX4, NOT IN RESPIRATORY DISTRESS, V/S STABLE, KEPT RESTED AND COMFORTABLE, WILL CONTINUE TO MONITOR.
--- NOTE | 2018-08-28 04:59 | NUR ---
DR. PERRY AT BEDSIDE FOR EVAL.
[2018-08-28] MEDS ORDERED: HYDROCODONE/APAP 5/325MG 1 EACH TABLET ONE (05:16)
--- NOTE | 2018-08-28 05:26 | NUR ---
Patient discharged to home in stable condition. Written and verbal after care instructions given. Patient verbalizes understanding of instruction.
[2018-08-28] MEDS ORDERED: HYDROCODONE/APAP 5/325MG 1 EACH TABLET PO ONE (05:30)
== END 2018-08-28 05:29 | disposition home or self-care (01) ==
LOC: ER 04:30
DX: G89.4 Chronic pain syndrome (principal); F19.10 Other psychoactive substance abuse, uncomplicated; F20.9 Schizophrenia, unspecified; F31.9 Bipolar disorder, unspecified; F17.200 Nicotine dependence, unspecified, uncomplicated; Z76.5 Malingerer [conscious simulation]; Z59.0 Homelessness; Z98.890 Other specified postprocedural states; Z79.899 Other long term (current) drug therapy

== ENCOUNTER 2018-09-03 23:00 | Emergency (ER) | payer SELFPAY ==
[~2018-09-03] VITALS: Ht 172.7 cm; Wt 68.0 kg
--- NOTE | 2018-09-03 23:16 | NUR ---
CALLED PATIENT IN THE WR, NO ANSWER.
--- NOTE | 2018-09-03 23:32 | NUR ---
PATIENT NOT IN THE WR.
--- NOTE | 2018-09-04 00:19 | NUR ---
PT TO BED 15; S/I PRECAUTIONS STARTED, ALL BELOGINGS IN UTILITY ROOM FOR SAFETY, CALLED HOUSE SUP FOR SITTER. CALLED SECURITY FOR PT TO BE WANDED
--- NOTE | 2018-09-04 00:20 | NUR ---
URINE SPECIMEN COLLECTED AND SENT TO LAB.
--- NOTE | 2018-09-04 00:29 | NUR ---
Nichole albright in [facility] - 09/04/18 at 0051 by ROSSI ER PHLEB AT [facility] FOR EVAL.
--- NOTE | 2018-09-04 00:29 | NUR ---
ER PHLEB AT BEDSIDE FOR BLOOD DRAW.
[2018-09-04 00:35] LABS: BASOPHILS # (AUTO) 0.1 /CMM (0.0-0.2); BASOPHILS % (AUTO) 0.5 % (0.0-2.0); EOSINOPHILS % (AUTO) 0.3 % (0.0-6.0); HEMATOCRIT 51 % (39-51); HEMOGLOBIN 17.1 g/dL (13.5-17.5); LYMPHOCYTES # (AUTO) 1.8 /CMM (0.8-4.8); LYMPHOCYTES % (AUTO) 15.8 % (20.0-44.0); MEAN CORPUSCULAR HGB CONC 34 g/dl (31.0-36.0); MEAN CORPUSCULAR VOLUME 92 fL (80-96); MONOCYTES # (AUTO) 0.6 /CMM (0.1-1.30); MONOCYTES % (AUTO) 5.5 % (2.0-12.0); NEUTROPHILS # (AUTO) 8.9 /CMM (1.8-8.9); NEUTROPHILS % (AUTO) 77.9 % (43.0-81.0); PLATELET COUNT (AUTO) 275 /CMM (150-450); RED BLOOD CELL COUNT(AUTO) 5.48 MIL/uL (4.5-6.0); WHITE BLOOD COUNT (AUTO) 11.4 K/uL (4.3-11.0)
[2018-09-04 00:38] LABS: APPEARANCE,URINE Clear (CLEAR); BILIRUBIN,URINE SMALL (NEGATIVE); BLOOD, URINE Trace-intact Ery/uL (NEGATIVE); COLOR,URINE Yellow (YELLOW); KETONES,URINE 40 (NEGATIVE); LEUKOCYTE ESTERASE ,URINE Negative (NEGATIVE); NITRITE, URINE Negative (NEGATIVE); PROTEIN,URINE 30 mg/dl (NEGATIVE); UGLUCOSE Negative (NEGATIVE); UROBILINOGEN,URINE 0.2 EU/dL (0.2)
[2018-09-04 00:56] LABS: CALCIUM, SERUM 10.5 mg/dL (8.5-10.1); CARBON DIOXIDE 25 mmol/L (21-32); CHLORIDE 95 mmol/L (98-107); CREATININE 1.6 mg/dL (0.6-1.3); GLUCOSE 89 mg/dL (74-106); POTASSIUM 4.9 mmol/L (3.5-5.1); SODIUM SERUM 135 mmol/L (136-145); UREA NITROGEN, BLOOD 24 mg/dL (7-18)
[2018-09-04 00:59] LABS: ALANINE AMINOTRANSFERASE 27 U/L (12-78); ALBUMIN 4.9 g/dL (3.4-5.0); ALCOHOL, BLOOD < 3 mg/dL (0-0); ALKALINE PHOSPHATASE 110 U/L (46-116); ASPARTATE AMINOTRANSFERASE 34 U/L (15-37); BILIRUBIN,DIRECT 0.1 mg/dL (0.0-0.2); BILIRUBIN,TOTAL 0.6 mg/dL (0.2-1.0); SALICYLATE 3.3 mg/dL (2.8-20.0); TOTAL PROTEIN, SERUM 9.5 g/dL (6.4-8.2)
[2018-09-04 01:00] LABS: ACETAMINOPHEN 0 ug/ml (10-30)
[2018-09-04 01:18] LABS: BACTERIA,URINE Rare /HPF (None Seen); HYALINE CASTS, URINE Moderate /LPF (None Seen); RBC,URINE 0-2 /HPF (0-2); SQUAMOUS EPITHELIAL CELL,UR None Seen /HPF (None Seen); WBC,URINE NONE SEEN /HPF (0-3)
--- NOTE | 2018-09-04 02:50 | NUR ---
TOM OWENS CRISIS TEAM AT BEDSIDE FOR EVAL.
[2018-09-04 07:01] VITALS: BP 124/71
--- NOTE | 2018-09-04 07:01 | NUR ---
Patient given written and verbal discharge instructions. Patient verbalizes understanding of instructions. Patient is ambulatory with steady gait. Refuses offer of retirement placement. Patient given list of available shelters in surrounding area.
== END 2018-09-04 07:04 | disposition home or self-care (01) ==
LOC: ER 23:03
DX: R45.851 Suicidal ideations (principal); F19.10 Other psychoactive substance abuse, uncomplicated; F17.200 Nicotine dependence, unspecified, uncomplicated; Z98.890 Other specified postprocedural states
CPT/HCPCS: 36415; 80048; 80076; 80305; 80307; 80329; 81001; 85025; 99284; G0480; 81000-TC

== ENCOUNTER 2018-12-12 20:37 | Emergency (ER) | payer OTHER ==
[~2018-12-12] VITALS: Ht 175.3 cm; Wt 70.3 kg
--- NOTE | 2018-12-12 20:45 | NUR ---
TO BED 14 AMBULATORY C/O SI WITH PLAN TO RUN INTO TRAFFIC. 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 DENIES HI. URINE SAMPLE COLLECTED AND SENT TO LAB. PT CALM AND COOPERATIVE AT THIS TIME. PLACE PT ON HOSPITAL GOWN, ALL BELONGINGS REMOVED FROM ROOM. 1:1 SITTER AT BEDSIDE FOR PT SAFETY. WILL CONTINUE TO MONITOR PT.
[2018-12-12 21:26] LABS: BASOPHILS % (AUTO) 0.5 % (0.0-2.0); EOSINOPHILS % (AUTO) 0.3 % (0.0-6.0); HEMATOCRIT 46 % (39-51); HEMOGLOBIN 15.8 g/dL (13.5-17.5); LYMPHOCYTES # (AUTO) 2.4 /CMM (0.8-4.8); LYMPHOCYTES % (AUTO) 23.5 % (20.0-44.0); MEAN CORPUSCULAR HGB CONC 34 g/dl (31.0-36.0); MEAN CORPUSCULAR VOLUME 92 fL (80-96); MONOCYTES # (AUTO) 0.9 /CMM (0.1-1.30); NEUTROPHILS # (AUTO) 6.8 /CMM (1.8-8.9); NEUTROPHILS % (AUTO) 66.7 % (43.0-81.0); PLATELET COUNT (AUTO) 310 /CMM (150-450); RED BLOOD CELL COUNT(AUTO) 5.06 MIL/uL (4.5-6.0); WHITE BLOOD COUNT (AUTO) 10.2 K/uL (4.3-11.0)
[2018-12-12 21:39] LABS: ALBUMIN 4.9 g/dL (3.4-5.0); BILIRUBIN,DIRECT 0.2 mg/dL (0.0-0.2); BILIRUBIN,TOTAL 0.9 mg/dL (0.2-1.0); CALCIUM, SERUM 9.6 mg/dL (8.5-10.1); CREATININE 1.2 mg/dL (0.6-1.3); POTASSIUM 3.8 mmol/L (3.5-5.1); SALICYLATE 3.4 mg/dL (2.8-20.0); TOTAL PROTEIN, SERUM 9.2 g/dL (6.4-8.2)
[2018-12-12] MEDS ORDERED: LORAZEPAM INJ 2 MG/ML VIAL IM ONE (22:00)
[2018-12-12] MEDS ORDERED: LORAZEPAM INJ 2 MG/ML VIAL ONE (22:02)
[2018-12-12 22:12] LABS: APPEARANCE,URINE Clear (CLEAR); BILIRUBIN,URINE SMALL (NEGATIVE); BLOOD, URINE Trace-intact Ery/uL (NEGATIVE); COLOR,URINE Yellow (YELLOW); KETONES,URINE 15 (NEGATIVE); LEUKOCYTE ESTERASE ,URINE Negative (NEGATIVE); NITRITE, URINE Negative (NEGATIVE); PH,URINE 5.5 (5.0-8.0); PROTEIN,URINE 30 mg/dl (NEGATIVE); UGLUCOSE Negative (NEGATIVE)
[2018-12-12 23:27] LABS: BACTERIA,URINE None seen /HPF (None Seen); RBC,URINE 0-2 /HPF (0-2); SQUAMOUS EPITHELIAL CELL,UR Few /HPF (None Seen); WBC,URINE 0-2 /HPF (0-3)
--- NOTE | 2018-12-13 01:05 | NUR ---
CLINICALS FAXED TO [facility]. AWAITING RESPONSE
--- NOTE | 2018-12-13 02:18 | NUR ---
Patient is resting comfortably in bed with eyes closed. Easily aroused. VSS
--- NOTE | 2018-12-13 05:01 | NUR ---
PER [facility]. NO BEDS AVAILABLE UNTIL AFTER D/C IN THE AM. WILL F/U.
--- NOTE | 2018-12-13 05:32 | NUR ---
RPatient is resting comfortably in bed with eyes closed. Easily aroused. VSS. SITTER AT BEDSIDE. - SOB NOTED. AMBULATORY TO BATHROOM.
--- NOTE | 2018-12-13 07:25 | NUR ---
RECEIVED REPORT FROM [facility]. PATIENT RECEIVED SLEEPING, AROUSABLE THROUGH VERBAL AND TACTILE STIMULI. NO ACUTE DISTRESS. DENIES ANY PAIN OR DISCOMFORT. WILL CONTINUE TO MONITOR ACCORDINGLY
--- NOTE | 2018-12-13 08:15 | NUR ---
ANJEL contacted Rubens at [facility] following up regarding clinical referral packet that was sent to [facility] for voluntary admission. Rubens informed ANJEL he will follow up with [facility] and call ANJEL back.
--- NOTE | 2018-12-13 08:34 | NUR ---
ANJEL received a call back from [facility], stating pt. has been accepted at [facility] and intake will call ANJEL around 12 PM for report information. ANJEL updated RN Freddie in ED with aforementioned information.
--- NOTE | 2018-12-13 08:54 | NUR ---
PT ACCEPTED AT [facility], PENDING TRANSFER INFORMATION
--- NOTE | 2018-12-13 09:08 | NUR ---
WAITING ON A BED AT [facility], SPOKE WITH JOSE,INTAKE
[2018-12-13 12:11] VITALS: BP 126/78
--- NOTE | 2018-12-13 12:20 | NUR ---
REPORT GIVEN TO NURSE SUB MASTER AT [facility]. WILL ARRANGE TRANSFER.
--- NOTE | 2018-12-13 12:23 | NUR ---
PATIENT VERBALIZING THAT HE DOES NOT WANT TO COME TO [facility] ANYMORE. EXPLAINED TO PATIENT THAT PLACEMENT IS ALREADY IN PROCESS AND THAT WE ARE SETTING TRANSPORTATION, BUT PATIENT STRONGLY INSISTED THAT HE WANTS TO LEAVE. DR POTTER MADE AWARE
--- NOTE | 2018-12-13 12:24 | NUR ---
FULL STACK WEB DEVELOPER AT BEDSIDE
--- NOTE | 2018-12-13 12:37 | NUR ---
Patient discharged to home in stable condition. Written and verbal after care instructions given. Patient verbalizes understanding of instruction. ID band removed. all belongings complete on discharge, no report of missing inventory.
== END 2018-12-13 12:39 | disposition home or self-care (01) ==
LOC: ER 20:41
DX: R45.851 Suicidal ideations (principal); F31.9 Bipolar disorder, unspecified; F41.9 Anxiety disorder, unspecified; F19.10 Other psychoactive substance abuse, uncomplicated; F20.9 Schizophrenia, unspecified; F10.10 Alcohol abuse, uncomplicated; F17.200 Nicotine dependence, unspecified, uncomplicated; F15.10 Other stimulant abuse, uncomplicated; Y90.1 Blood alcohol level of 20-39 mg/100 ml; Z59.0 Homelessness; Z98.890 Other specified postprocedural states
CPT/HCPCS: 36415; 80048; 80076; 80305; 80307; 80329; 81001; 85025; 96372; 99284; G0480; J2060; 81000-TC

== ENCOUNTER 2018-12-15 02:58 | Emergency (ER) | payer OTHER ==
[~2018-12-15] VITALS: Ht 172.7 cm; Wt 67.6 kg
--- NOTE | 2018-12-15 03:10 | NUR ---
PT BIB SELF C/O "FEELING SUICIDAL. PLAN TO OD ON HEROIN" -SOB AOX4. VSS. PT IS AAOX4, NOT IN RESPIRATORY DISTRESS, V/S STABLE, KEPT RESTED AND COMFORTABLE, WILL CONTINUE TO MONITOR.
--- NOTE | 2018-12-15 03:50 | NUR ---
URINE SPECIMEN COLLECTED AND SENT TO LAB.
--- NOTE | 2018-12-15 03:55 | NUR ---
ER PHLEB AT BEDSIDE FOR BLOOD DRAW.
[2018-12-15 04:16] LABS: CALCIUM, SERUM 8.7 mg/dL (8.5-10.1); CREATININE 1.2 mg/dL (0.6-1.3); POTASSIUM 3.6 mmol/L (3.5-5.1)
[2018-12-15 04:16] LABS: APPEARANCE,URINE Clear (CLEAR); BILIRUBIN,URINE Negative (NEGATIVE); BLOOD, URINE Negative Ery/uL (NEGATIVE); COLOR,URINE Yellow (YELLOW); KETONES,URINE Negative (NEGATIVE); LEUKOCYTE ESTERASE ,URINE Negative (NEGATIVE); NITRITE, URINE Negative (NEGATIVE); PH,URINE 5.5 (5.0-8.0); PROTEIN,URINE Negative (NEGATIVE); UGLUCOSE Negative (NEGATIVE); UROBILINOGEN,URINE 0.2 EU/dL (0.2)
[2018-12-15 04:18] LABS: BASOPHILS # (AUTO) 0.1 /CMM (0.0-0.2); BASOPHILS % (AUTO) 0.8 % (0.0-2.0); EOSINOPHILS % (AUTO) 0.8 % (0.0-6.0); HEMATOCRIT 39 % (39-51); HEMOGLOBIN 13.4 g/dL (13.5-17.5); LYMPHOCYTES # (AUTO) 2.1 /CMM (0.8-4.8); LYMPHOCYTES % (AUTO) 28.2 % (20.0-44.0); MEAN CORPUSCULAR HGB CONC 34 g/dl (31.0-36.0); MEAN CORPUSCULAR VOLUME 93 fL (80-96); MONOCYTES # (AUTO) 0.6 /CMM (0.1-1.30); MONOCYTES % (AUTO) 8.6 % (2.0-12.0); NEUTROPHILS # (AUTO) 4.6 /CMM (1.8-8.9); NEUTROPHILS % (AUTO) 61.6 % (43.0-81.0); PLATELET COUNT (AUTO) 285 /CMM (150-450); RED BLOOD CELL COUNT(AUTO) 4.24 MIL/uL (4.5-6.0); WHITE BLOOD COUNT (AUTO) 7.5 K/uL (4.3-11.0)
[2018-12-15 04:29] LABS: ALBUMIN 3.7 g/dL (3.4-5.0); BILIRUBIN,DIRECT 0.1 mg/dL (0.0-0.2); BILIRUBIN,TOTAL 0.3 mg/dL (0.2-1.0); SALICYLATE 2.8 mg/dL (2.8-20.0); TOTAL PROTEIN, SERUM 7.2 g/dL (6.4-8.2)
--- NOTE | 2018-12-15 05:42 | NUR ---
PATIENT CLINICALS FAXED TO [facility]. AWAITING RESPONSE.
[2018-12-15] MEDS ORDERED: LORAZEPAM 1 MG TABLET ONE (05:47)
[2018-12-15] MEDS ORDERED: LORAZEPAM 1 MG TABLET PO ONE (06:00)
--- NOTE | 2018-12-15 07:12 | NUR ---
PT ACCEPTED TO [facility]. [phone]. PT UNDER DR NEWTON, DR GARCIA. CALL FOR REPORT IN 15 MINS.
--- NOTE | 2018-12-15 08:17 | NUR ---
CALL FROM SILVER OWENS AT [facility],ASKING WHEN PATIENT IS COMING, [place] CALLED
--- NOTE | 2018-12-15 08:28 | NUR ---
CALLED TRANSPORT [phone] [facility] CALLED "CALL THE CAR" [phone] CONFIRMATION NUMBER IS [phone] WILL CALL US BACK WITH CLAUDIA.
--- NOTE | 2018-12-15 08:36 | NUR ---
AMBULIFE WILL BE HERE WITHIN THE HOUR.
[2018-12-15 10:02] VITALS: BP 116/66
--- NOTE | 2018-12-15 10:03 | NUR ---
Patient discharged to [facility] for voluntary admission in stable condition. Written and verbal after care instructions given. Patient verbalizes understanding of instruction. medically cleared for admission to [facility].
== END 2018-12-15 10:03 ==
LOC: ER 02:59
DX: F31.9 Bipolar disorder, unspecified (principal); R45.851 Suicidal ideations; F41.9 Anxiety disorder, unspecified; F12.10 Cannabis abuse, uncomplicated; F20.9 Schizophrenia, unspecified; F10.10 Alcohol abuse, uncomplicated; F17.200 Nicotine dependence, unspecified, uncomplicated; F15.10 Other stimulant abuse, uncomplicated; Y90.0 Blood alcohol level of less than 20 mg/100 ml; Z98.890 Other specified postprocedural states
CPT/HCPCS: 36415; 80048; 80076; 80305; 80307; 80329; 81001; 85025; 99285; 99406; G0480; 81000-TC

== ENCOUNTER 2018-12-23 13:42 | Emergency (ER) | payer OTHER ==
--- NOTE | 2018-12-23 14:12 | NUR ---
CALLED IN ED WAITING ROOM. NO RESPONSE.
--- NOTE | 2018-12-23 14:35 | NUR ---
PT LEFT /OUT BEING TRIAGE.
== END 2018-12-23 14:37 | disposition left against medical advice (07) ==
LOC: ER 13:46
DX: R45.851 Suicidal ideations (principal); Z53.21 Procedure and treatment not carried out due to patient leaving prior to being seen by health care provider

== ENCOUNTER 2018-12-26 04:35 | Emergency (ER) | payer OTHER ==
[~2018-12-26] VITALS: Ht 170.2 cm; Wt 70.8 kg
[2018-12-26 04:37] VITALS: BP 151/78
[2018-12-26] MEDS ORDERED: LORAZEPAM 1 MG TABLET ONE (05:15)
[2018-12-26] MEDS ORDERED: LORAZEPAM 1 MG TABLET PO ONE (05:30)
--- NOTE | 2018-12-26 05:32 | NUR ---
Patient given written and verbal discharge instructions. Patient verbalizes understanding of instructions. Patient is ambulatory with steady gait. Refuses offer of [facility] placement. Patient given list of available shelters in surrounding area.
== END 2018-12-26 05:34 | disposition home or self-care (01) ==
LOC: ER 04:38
DX: T43.621A Poisoning by amphetamines, accidental (unintentional), initial encounter (principal); F12.10 Cannabis abuse, uncomplicated; F17.200 Nicotine dependence, unspecified, uncomplicated; F31.9 Bipolar disorder, unspecified; F20.9 Schizophrenia, unspecified; Z98.890 Other specified postprocedural states; Z79.899 Other long term (current) drug therapy; Y92.89 Other specified places as the place of occurrence of the external cause

== ENCOUNTER 2019-03-18 22:12 | Emergency (ER) | payer OTHER ==
[~2019-03-18] VITALS: Ht 172.7 cm; Wt 65.8 kg
--- NOTE | 2019-03-18 22:29 | NUR ---
PT BROUGHT INTO EMERGENCY ROOM FOR C/C OF CHEST PAIN NON RADIATING FOR 4 MAURICE 5 HOURS. PT DENIES NAUSEA VOMITING OR DIAPHORESIS. PT PLACED ON MONITOR WILL CONTINUE TO FOLLOW.
[2019-03-18 22:45] LABS: BASOPHILS # (AUTO) 0.1 /CMM (0.0-0.2); BASOPHILS % (AUTO) 0.6 % (0.0-2.0); EOSINOPHILS % (AUTO) 0.2 % (0.0-6.0); HEMATOCRIT 45 % (39-51); HEMOGLOBIN 14.7 g/dL (13.5-17.5); LYMPHOCYTES % (AUTO) 8.5 % (20.0-44.0); MEAN CORPUSCULAR HGB CONC 33 g/dl (31.0-36.0); MEAN CORPUSCULAR VOLUME 91 fL (80-96); MONOCYTES # (AUTO) 0.5 /CMM (0.1-1.30); NEUTROPHILS % (AUTO) 86.7 % (43.0-81.0); PLATELET COUNT (AUTO) 166 /CMM (150-450); RED BLOOD CELL COUNT(AUTO) 4.89 MIL/uL (4.5-6.0); WHITE BLOOD COUNT (AUTO) 11.6 K/uL (4.3-11.0)
[2019-03-18 22:56] LABS: CALCIUM, SERUM 9.1 mg/dL (8.5-10.1); CARBON DIOXIDE 28 mmol/L (21-32); CHLORIDE 100 mmol/L (98-107); CREATININE 1.2 mg/dL (0.6-1.3); GLUCOSE 84 mg/dL (74-106); POTASSIUM 3.7 mmol/L (3.5-5.1); SODIUM SERUM 137 mmol/L (136-145); UREA NITROGEN, BLOOD 11 mg/dL (7-18)
[2019-03-18] MEDS ORDERED: IV NS 0.9% 1,000 ML BAG IV ONE (23:00)
[2019-03-18 23:02] LABS: ALANINE AMINOTRANSFERASE 22 U/L (12-78); ALBUMIN 3.6 g/dL (3.4-5.0); ALKALINE PHOSPHATASE 95 U/L (46-116); ASPARTATE AMINOTRANSFERASE 37 U/L (15-37); BILIRUBIN,DIRECT 0.1 mg/dL (0.0-0.2); BILIRUBIN,TOTAL 0.3 mg/dL (0.2-1.0); TOTAL PROTEIN, SERUM 7.7 g/dL (6.4-8.2)
--- NOTE | 2019-03-19 02:00 | NUR ---
Patient is resting comfortably in bed with eyes closed. Easily aroused. VSS
--- NOTE | 2019-03-19 03:23 | NUR ---
Patient given written and verbal discharge instructions. Patient verbalizes understanding of instructions. Patient is ambulatory with steady gait. Refuses offer of longterm placement. Patient given list of available shelters in surrounding area.
[2019-03-19 03:29] VITALS: BP 135/70
== END 2019-03-19 03:29 | disposition home or self-care (01) ==
LOC: ER 22:13
DX: R07.89 Other chest pain (principal); F15.10 Other stimulant abuse, uncomplicated; F31.9 Bipolar disorder, unspecified; F20.9 Schizophrenia, unspecified; F17.200 Nicotine dependence, unspecified, uncomplicated; Z98.890 Other specified postprocedural states; Z79.899 Other long term (current) drug therapy
CPT/HCPCS: 36415 ×2; 71045; 80048; 80076; 84484 ×2; 85025; 93005; 99284; J7030

== ENCOUNTER 2019-04-14 23:08 | Emergency (ER) | payer OTHER ==
[~2019-04-14] VITALS: Ht 170.2 cm; Wt 63.5 kg
[2019-04-14 23:25] VITALS: BP 139/82
[2019-04-14] MEDS ORDERED: LORAZEPAM 1 MG TABLET ONE (23:39)
[2019-04-15] MEDS ORDERED: LORAZEPAM 1 MG TABLET PO ONE
--- NOTE | 2019-04-15 00:02 | NUR ---
Pt -si, -Hi. Pt eloped.
== END 2019-04-15 02:16 | disposition home or self-care (01) ==
LOC: ER 23:12
DX: F19.10 Other psychoactive substance abuse, uncomplicated (principal); F41.9 Anxiety disorder, unspecified; F31.9 Bipolar disorder, unspecified; F20.9 Schizophrenia, unspecified; F17.200 Nicotine dependence, unspecified, uncomplicated; Z59.0 Homelessness; Z98.890 Other specified postprocedural states

== ENCOUNTER 2019-04-24 03:23 | Emergency (ER) | payer OTHER ==
[~2019-04-24] VITALS: Ht 172.7 cm; Wt 70.3 kg
--- NOTE | 2019-04-24 03:26 | NUR ---
CALLED TO TRIAGE. NO ANSWER. NOT IN WAITING ROOM
--- NOTE | 2019-04-24 03:40 | NUR ---
PT BIBSELF C/O TACTILE HALLUCINATIONS. PT STATES "THERE ARE BUGS CRAWLING ALL OVER MY SKIN". NORMAL SKIN APPEARANCE ON ASSESSMENT. SKIN INTACT, NO REDDNESS OR RASHES. PT ADMITS TO USING COCAINE PRIOR TO ARRIVAL. PT DENIES SI/HI AT THIS TIME. PT AAOX4. RESPIRATIONS EVEN AND UNLABORED. VITAL SIGNS STABLE. AMBULATORY WITH STEADY GAIT. NO ACUTE DISTRESS NOTED AT THIS TIME. WILL CONTINUE TO MONITOR
[2019-04-24 04:03] LABS: APPEARANCE,URINE Clear (CLEAR); BILIRUBIN,URINE SMALL (NEGATIVE); BLOOD, URINE Negative Ery/uL (NEGATIVE); COLOR,URINE Yellow (YELLOW); KETONES,URINE 15 (NEGATIVE); LEUKOCYTE ESTERASE ,URINE Negative (NEGATIVE); NITRITE, URINE Negative (NEGATIVE); PH,URINE 5.5 (5.0-8.0); PROTEIN,URINE Negative (NEGATIVE); UGLUCOSE Negative (NEGATIVE); UROBILINOGEN,URINE 0.2 EU/dL (0.2)
[2019-04-24 04:07] LABS: BASOPHILS % (AUTO) 0.6 % (0.0-2.0); EOSINOPHILS % (AUTO) 0.6 % (0.0-6.0); HEMATOCRIT 39 % (39-51); LYMPHOCYTES # (AUTO) 1.3 /CMM (0.8-4.8); LYMPHOCYTES % (AUTO) 24.5 % (20.0-44.0); MEAN CORPUSCULAR HGB CONC 33 g/dl (31.0-36.0); MEAN CORPUSCULAR VOLUME 90 fL (80-96); MONOCYTES # (AUTO) 0.8 /CMM (0.1-1.30); MONOCYTES % (AUTO) 15.8 % (2.0-12.0); NEUTROPHILS # (AUTO) 3.1 /CMM (1.8-8.9); NEUTROPHILS % (AUTO) 58.5 % (43.0-81.0); PLATELET COUNT (AUTO) 221 /CMM (150-450); WHITE BLOOD COUNT (AUTO) 5.3 K/uL (4.3-11.0)
[2019-04-24 04:17] LABS: CALCIUM, SERUM 8.9 mg/dL (8.5-10.1); CARBON DIOXIDE 27 mmol/L (21-32); CHLORIDE 105 mmol/L (98-107); CREATININE 1.1 mg/dL (0.6-1.3); GLUCOSE 86 mg/dL (74-106); POTASSIUM 3.7 mmol/L (3.5-5.1); SODIUM SERUM 140 mmol/L (136-145); UREA NITROGEN, BLOOD 16 mg/dL (7-18)
[2019-04-24 04:22] LABS: ALANINE AMINOTRANSFERASE 29 U/L (12-78); ALBUMIN 3.8 g/dL (3.4-5.0); ALKALINE PHOSPHATASE 96 U/L (46-116); ASPARTATE AMINOTRANSFERASE 35 U/L (15-37); BILIRUBIN,DIRECT 0.1 mg/dL (0.0-0.2); BILIRUBIN,TOTAL 0.3 mg/dL (0.2-1.0); TOTAL PROTEIN, SERUM 7.5 g/dL (6.4-8.2)
[2019-04-24 04:23] LABS: ACETAMINOPHEN 0 ug/ml (10-30); ALCOHOL, BLOOD < 3 mg/dL (0-0); SALICYLATE 2.4 mg/dL (2.8-20.0)
[2019-04-24 05:08] LABS: EOSINOPHILS % (MANUAL) 0 % (0-4); LYMPHOCYTES % (MANUAL) 20 % (16-48); MONOCYTES % (MANUAL) 10 % (0-11.0); NEUTROPHILS % (MANUAL) 60 (42-76)
--- NOTE | 2019-04-24 06:28 | NUR ---
Patient given written and verbal discharge instructions. Patient verbalizes understanding of instructions. Patient is ambulatory with steady gait. Patient will states he will look into alf placement. Patient given list of available shelters in surrounding area.
[2019-04-24 06:29] VITALS: BP 118/83
== END 2019-04-24 06:29 | disposition home or self-care (01) ==
LOC: ER 03:27
DX: F19.10 Other psychoactive substance abuse, uncomplicated (principal); F28 Other psychotic disorder not due to a substance or known physiological condition; N40.0 Benign prostatic hyperplasia without lower urinary tract symptoms; F17.200 Nicotine dependence, unspecified, uncomplicated; F20.9 Schizophrenia, unspecified; F31.9 Bipolar disorder, unspecified; Z98.890 Other specified postprocedural states; Z59.0 Homelessness
CPT/HCPCS: 36415; 80048; 80076; 80305; 80307; 80329; 81001; 85025; 99283; G0480; 81000-TC

== ENCOUNTER 2019-05-06 20:04 | Emergency (ER) | payer OTHER ==
[~2019-05-06] VITALS: Ht 172.7 cm; Wt 70.3 kg
--- NOTE | 2019-05-06 20:09 | NUR ---
CALLED TO BE TRIAGED, NO ANSWER
--- NOTE | 2019-05-06 20:13 | NUR ---
CALLED TO BE TRIAGED, NO ANSWER
--- NOTE | 2019-05-06 20:15 | NUR ---
CALLED TO BE TRIAGED, NO ANSWER
--- NOTE | 2019-05-06 20:20 | NUR ---
CALLED TO BE TRIAGED, NO ANSWER
--- NOTE | 2019-05-06 21:47 | NUR ---
CALLED TO BE TRIAGED, NO ANSWER
--- NOTE | 2019-05-06 21:53 | NUR ---
PT CAME BACK AND WANS TO BE SEEN.
--- NOTE | 2019-05-06 21:55 | NUR ---
TO ER BED 15 AMBULATORY C/O SI WITH PLAN TO RUN IN TO TRAFFIC. ADMITS TO ETOH. PT AAOX4 ANGEL CUTE DISTRESS NOTED, RESP EVEN AND UNLABORED. PT CALM AND COOPERATIVE AT THIS TIME. URINE SAMPLE COLLECTED AND SENT TO LAB. [facility] MD NJ.
--- NOTE | 2019-05-06 22:32 | NUR ---
LEILA PEREZ AT [facility] TO CLEM PT WITH ORDERS RECIEVED, WILL CARRY OUT ORDERS.
[2019-05-06 23:18] LABS: BASOPHILS # (AUTO) 0.2 /CMM (0.0-0.2); BASOPHILS % (AUTO) 3.2 % (0.0-2.0); EOSINOPHILS % (AUTO) 1.7 % (0.0-6.0); HEMATOCRIT 40 % (39-51); HEMOGLOBIN 13.3 g/dL (13.5-17.5); LYMPHOCYTES # (AUTO) 1.9 /CMM (0.8-4.8); LYMPHOCYTES % (AUTO) 32.4 % (20.0-44.0); MEAN CORPUSCULAR HGB CONC 33 g/dl (31.0-36.0); MEAN CORPUSCULAR VOLUME 90 fL (80-96); MONOCYTES # (AUTO) 0.5 /CMM (0.1-1.30); MONOCYTES % (AUTO) 7.9 % (2.0-12.0); NEUTROPHILS # (AUTO) 3.3 /CMM (1.8-8.9); NEUTROPHILS % (AUTO) 54.8 % (43.0-81.0); PLATELET COUNT (AUTO) 340 /CMM (150-450); RED BLOOD CELL COUNT(AUTO) 4.48 MIL/uL (4.5-6.0)
[2019-05-06 23:24] LABS: CALCIUM, SERUM 9.7 mg/dL (8.5-10.1); CARBON DIOXIDE 31 mmol/L (21-32); CHLORIDE 104 mmol/L (98-107); CREATININE 0.8 mg/dL (0.6-1.3); GLUCOSE 70 mg/dL (74-106); POTASSIUM 3.7 mmol/L (3.5-5.1); SODIUM SERUM 140 mmol/L (136-145); UREA NITROGEN, BLOOD 12 mg/dL (7-18)
[2019-05-06 23:28] LABS: APPEARANCE,URINE Clear (CLEAR); BILIRUBIN,URINE SMALL (NEGATIVE); BLOOD, URINE Negative Ery/uL (NEGATIVE); COLOR,URINE Yellow (YELLOW); KETONES,URINE Negative (NEGATIVE); LEUKOCYTE ESTERASE ,URINE Negative (NEGATIVE); NITRITE, URINE Negative (NEGATIVE); PROTEIN,URINE Negative (NEGATIVE); UGLUCOSE Negative (NEGATIVE)
[2019-05-06 23:30] LABS: ALANINE AMINOTRANSFERASE 31 U/L (12-78); ALBUMIN 3.9 g/dL (3.4-5.0); ALCOHOL, BLOOD < 3 mg/dL (0-0); ALKALINE PHOSPHATASE 97 U/L (46-116); ASPARTATE AMINOTRANSFERASE 40 U/L (15-37); BILIRUBIN,DIRECT 0.2 mg/dL (0.0-0.2); BILIRUBIN,TOTAL 0.7 mg/dL (0.2-1.0); TOTAL PROTEIN, SERUM 7.8 g/dL (6.4-8.2)
[2019-05-06 23:33] LABS: SALICYLATE 0.4 mg/dL (2.8-20.0)
--- NOTE | 2019-05-06 23:33 | NUR ---
PT RESTING QUIETLY, NO ACUTE DISTRESS NOTED, RESP EVEN AND UNLABORED. CALL LIGHT WITHIN REACH. 1:1 SITTER AT BEDSIDE. WILL CONTINUE TO MONITOR PT CLOSELY.
[2019-05-06 23:34] LABS: ACETAMINOPHEN 0 ug/ml (10-30)
--- NOTE | 2019-05-06 23:53 | NUR ---
PT MEDICALLY CLEARED PER Segundo BLANCA. CLINICAL AND FACESHEET FAXED TO [facility]TA[facility].
[2019-05-06 23:58] LABS: RBC,URINE 0-2 /HPF (0-2)
[2019-05-06 23:59] LABS: BACTERIA,URINE None seen /HPF (None Seen); MUCUS,URINE Few /LPF (None Seen); SQUAMOUS EPITHELIAL CELL,UR Few /HPF (None Seen); WBC,URINE 0-2 /HPF (0-3)
--- NOTE | 2019-05-07 02:41 | NUR ---
SPOKE PT [facility] INTAKE [facility] STATES THEY ARE UNABLE TO ACCEPT PT DUE TO PT'S URINE DRUG SCREEN IS POSITIVE FOR OPIATES. ER MD MADE AWARE.
--- NOTE | 2019-05-07 02:42 | NUR ---
PER [facility] INTAKE PT WILL NE TO HAVE A NEGATIVE OPIATE DRUG SCREEN UNTIL THEY ARE ABLE TO ACCEPT PT.
--- NOTE | 2019-05-07 04:36 | NUR ---
Patient is resting comfortably in bed. Easily aroused. VSS.
--- NOTE | 2019-05-07 05:12 | NUR ---
PT AMBULATROY TO THE BATHROOM WITH STEADY GAIT NOTED. PT C/O BILATERAL FOOT PAIN. ER MD TORRES AWARE.
--- NOTE | 2019-05-07 06:26 | NUR ---
Patient is resting comfortably in bed. Easily aroused. VSS.
--- NOTE | 2019-05-07 08:20 | NUR ---
PT REFUSED TO SIGN DISCHARGE PAPERS, MD AND CHARGE NURSE AWARE, CALLED SECURITY.
--- NOTE | 2019-05-07 08:21 | NUR ---
Patient given written and verbal discharge instructions. Patient verbalizes understanding of instructions. Patient is ambulatory with steady gait. Refuses offer of custodial placement. Patient given list of available shelters in surrounding area.
[2019-05-07 08:23] VITALS: BP 121/77
== END 2019-05-07 08:24 | disposition home or self-care (01) ==
LOC: ER 20:13
DX: R45.851 Suicidal ideations (principal); F19.10 Other psychoactive substance abuse, uncomplicated; N40.0 Benign prostatic hyperplasia without lower urinary tract symptoms; F17.200 Nicotine dependence, unspecified, uncomplicated; F20.9 Schizophrenia, unspecified; Z98.890 Other specified postprocedural states
CPT/HCPCS: 36415; 80048; 80076; 80305; 80307; 80329; 81001; 85025; 99285; G0480; 81000-TC

== ENCOUNTER 2019-08-07 02:28 | Emergency (ER) | payer OTHER ==
[~2019-08-07] VITALS: Ht 172.7 cm; Wt 70.3 kg
[2019-08-07 03:30] VITALS: BP 145/96
[2019-08-07] MEDS ORDERED: ACETAMINOPHEN ES 500 MG TABLET PO ONE (05:30)
[2019-08-07] MEDS ORDERED: ACETAMINOPHEN ES 500 MG TABLET ONE (05:30)
== END 2019-08-07 05:52 | disposition home or self-care (01) ==
LOC: ER 02:34
DX: F19.10 Other psychoactive substance abuse, uncomplicated (principal); N40.0 Benign prostatic hyperplasia without lower urinary tract symptoms; F31.9 Bipolar disorder, unspecified; F20.9 Schizophrenia, unspecified; R45.851 Suicidal ideations

== ENCOUNTER 2020-01-14 07:22 | Emergency (ER) | payer OTHER ==
[~2020-01-14] VITALS: Ht 172.7 cm; Wt 70.3 kg
--- NOTE | 2020-01-14 07:22 | NUR ---
PT BIBRA [address] C/O METH USED. PT IS AAOX2, NOT IN RESPIRATORY DISTRESS, V/S STABLE, KEPT RESTED AND COMFORTABLE. WILL CONTINUE TO MONITOR.
--- NOTE | 2020-01-14 07:30 | NUR ---
PT SEEN AND EXAMINED BY .
--- NOTE | 2020-01-14 07:49 | NUR ---
BLOOD DRAWN AND SENT TO LAB.
[2020-01-14 07:57] LABS: BASOPHILS # (AUTO) 0.1 /CMM (0.0-0.2); BASOPHILS % (AUTO) 1.2 % (0.0-2.0); EOSINOPHILS % (AUTO) 1.7 % (0.0-6.0); HEMATOCRIT 47 % (39-51); HEMOGLOBIN 15.2 g/dL (13.5-17.5); LYMPHOCYTES # (AUTO) 2.1 /CMM (0.8-4.8); LYMPHOCYTES % (AUTO) 32.2 % (20.0-44.0); MEAN CORPUSCULAR HGB CONC 33 g/dl (31.0-36.0); MEAN CORPUSCULAR VOLUME 92 fL (80-96); MONOCYTES # (AUTO) 0.4 /CMM (0.1-1.30); MONOCYTES % (AUTO) 6.9 % (2.0-12.0); NEUTROPHILS # (AUTO) 3.7 /CMM (1.8-8.9); PLATELET COUNT (AUTO) 405 /CMM (150-450); RED BLOOD CELL COUNT(AUTO) 5.07 MIL/uL (4.5-6.0); WHITE BLOOD COUNT (AUTO) 6.4 K/uL (4.3-11.0)
[2020-01-14 08:04] LABS: CALCIUM, SERUM 9.7 mg/dL (8.5-10.1); CARBON DIOXIDE 30 mmol/L (21-32); CHLORIDE 102 mmol/L (98-107); GLUCOSE 85 mg/dL (74-106); POTASSIUM 4.2 mmol/L (3.5-5.1); SODIUM SERUM 139 mmol/L (136-145); UREA NITROGEN, BLOOD 14 mg/dL (7-18)
[2020-01-14 08:11] LABS: ALANINE AMINOTRANSFERASE 27 U/L (12-78); ALBUMIN 3.9 g/dL (3.4-5.0); ALCOHOL, BLOOD < 3 mg/dL (0-0); ALKALINE PHOSPHATASE 96 U/L (46-116); ASPARTATE AMINOTRANSFERASE 28 U/L (15-37); BILIRUBIN,DIRECT 0.1 mg/dL (0.0-0.2); BILIRUBIN,TOTAL 0.3 mg/dL (0.2-1.0); TOTAL PROTEIN, SERUM 8.8 g/dL (6.4-8.2)
[2020-01-14 08:12] LABS: ACETAMINOPHEN < 2 ug/ml (10-30)
[2020-01-14 12:29] VITALS: BP 131/77
== END 2020-01-14 12:30 | disposition home or self-care (01) ==
LOC: ER 07:24
DX: G89.4 Chronic pain syndrome (principal); N40.0 Benign prostatic hyperplasia without lower urinary tract symptoms; F20.9 Schizophrenia, unspecified; F17.200 Nicotine dependence, unspecified, uncomplicated; Z59.0 Homelessness; Z98.890 Other specified postprocedural states; Z88.8 Allergy status to other drugs, medicaments and biological substances; Z79.899 Other long term (current) drug therapy
CPT/HCPCS: 36415; 80048-TC; 80076-TC; 83690-TC; 85025-TC; G0480

== ENCOUNTER 2020-06-29 19:29 | Emergency (ER) | payer OTHER ==
[~2020-06-29] VITALS: Ht 172.7 cm; Wt 72.6 kg
--- NOTE | 2020-06-29 20:03 | NUR ---
BIBSELF DEPRESSED, HAS NOT SLEPT IN DAYS. -SI/-HI. REQUEST TO GO TO [facility]. PT AOX4, CALM AND COOPERATIVE. RR EVEN AND UNLABORED. NO SOB NOTED. NO NVD AT THIS TIME. PT AWARE OF PLAN OF CARE AND AGREES.
--- NOTE | 2020-06-29 20:15 | NUR ---
BODY TECHNICIAN/PAINTER AT BEDSIDE FOR BLOOD DRAW
--- NOTE | 2020-06-29 20:20 | NUR ---
COVID SWAB COLLECTED AND SENT TO LAB
--- NOTE | 2020-06-29 20:34 | NUR ---
PT UNABLE TO PROVIDE URINE SAMPLE AT THIS TIME. AWARE. PT PROVIDED WITH WATER
[2020-06-29 20:50] LABS: BASOPHILS # (AUTO) 0.1 /CMM (0.0-0.2); BASOPHILS % (AUTO) 1.1 % (0.0-2.0); EOSINOPHILS % (AUTO) 2.1 % (0.0-6.0); HEMATOCRIT 38 % (39-51); HEMOGLOBIN 12.6 g/dL (13.5-17.5); LYMPHOCYTES # (AUTO) 2.1 /CMM (0.8-4.8); LYMPHOCYTES % (AUTO) 31.3 % (20.0-44.0); MEAN CORPUSCULAR HGB CONC 33 g/dl (31.0-36.0); MEAN CORPUSCULAR VOLUME 91 fL (80-96); MONOCYTES # (AUTO) 0.4 /CMM (0.1-1.30); MONOCYTES % (AUTO) 5.5 % (2.0-12.0); NEUTROPHILS # (AUTO) 3.9 /CMM (1.8-8.9); PLATELET COUNT (AUTO) 290 /CMM (150-450); RED BLOOD CELL COUNT(AUTO) 4.24 MIL/uL (4.5-6.0); WHITE BLOOD COUNT (AUTO) 6.6 K/uL (4.3-11.0)
[2020-06-29 20:55] LABS: BILIRUBIN,URINE Negative (NEGATIVE); COLOR,URINE YELLOW (YELLOW); LEUKOCYTE ESTERASE ,URINE Negative (NEGATIVE); NITRITE, URINE Negative (NEGATIVE); PH,URINE 8.5 (5.0-8.0); PROTEIN,URINE 100 mg/dl (NEGATIVE); UGLUCOSE Negative (NEGATIVE)
[2020-06-29 20:59] LABS: ACETAMINOPHEN < 10 ug/ml (10-30); ALANINE AMINOTRANSFERASE 25 U/L (12-78); ALBUMIN 3.7 g/dL (3.4-5.0); ALCOHOL, BLOOD 70 mg/dL (0-0); ALKALINE PHOSPHATASE 83 U/L (46-116); ASPARTATE AMINOTRANSFERASE 25 U/L (15-37); BILIRUBIN,DIRECT 0.1 mg/dL (0.0-0.2); BILIRUBIN,TOTAL 0.2 mg/dL (0.2-1.0); CARBON DIOXIDE 29 mmol/L (21-32); CHLORIDE 102 mmol/L (98-107); CREATININE 0.9 mg/dL (0.6-1.3); GLUCOSE 90 mg/dL (74-106); SODIUM SERUM 137 mmol/L (136-145); TOTAL PROTEIN, SERUM 7.8 g/dL (6.4-8.2); UREA NITROGEN, BLOOD 8 mg/dL (7-18)
[2020-06-29 21:07] LABS: BACTERIA,URINE Rare /HPF (None Seen); RBC,URINE 0-2 /HPF (0-2); SPERM,URINE Few /HPF (None Seen); SQUAMOUS EPITHELIAL CELL,UR 0-2 /HPF (None Seen); WBC,URINE 0-2 /HPF (0-3)
[2020-06-29 23:47] VITALS: BP 138/72
--- NOTE | 2020-06-30 01:13 | NUR ---
vinicio buitrago accepted at [facility] dr. oconnor [phone] intake request to give report and transfer after 2am.
--- NOTE | 2020-06-30 02:45 | NUR ---
Patient eloped from facility. ER MD notified.
== END 2020-06-30 02:46 | disposition left against medical advice (07) ==
LOC: ER 19:31
DX: R45.851 Suicidal ideations (principal); F31.9 Bipolar disorder, unspecified; N40.0 Benign prostatic hyperplasia without lower urinary tract symptoms; Z59.0 Homelessness; Z20.822 Contact with and (suspected) exposure to COVID-19; F15.10 Other stimulant abuse, uncomplicated
CPT/HCPCS: 36415; 80048; 80076; 80299; 80307; 80320; 81001; 85025; 87426; 99285; C9803; G0480

== ENCOUNTER 2020-08-01 04:02 | Emergency (ER) | payer OTHER ==
[~2020-08-01] VITALS: Ht 172.7 cm; Wt 68.0 kg
[2020-08-01 04:02] VITALS: BP 134/77
== END 2020-08-01 06:17 | disposition home or self-care (01) ==
LOC: ER 04:02
DX: Z76.5 Malingerer [conscious simulation] (principal); F31.9 Bipolar disorder, unspecified; F20.9 Schizophrenia, unspecified; F10.10 Alcohol abuse, uncomplicated; F17.200 Nicotine dependence, unspecified, uncomplicated; Y90.9 Presence of alcohol in blood, level not specified; Z98.890 Other specified postprocedural states; Z88.8 Allergy status to other drugs, medicaments and biological substances; Z59.0 Homelessness

== ENCOUNTER 2021-03-24 21:56 | Emergency (ER) | payer OTHER ==
[~2021-03-24] VITALS: Ht 175.3 cm; Wt 70.3 kg
--- NOTE | 2021-03-24 22:10 | NUR ---
PT WALKED OUT ON PARAMEDICS WHILE AWAITING TO BE TRIAGE. PT WAS NOT RECEIVED OR TRIAGED YET.
--- NOTE | 2021-03-25 00:43 | NUR ---
URINE COLLECTED AND SENT TO LAB
[2021-03-25 00:47] VITALS: BP 144/79
--- NOTE | 2021-03-25 00:49 | NUR ---
COVID ANTIGEN SWAB COLLECTED AND SENT TO LAB
--- NOTE | 2021-03-25 00:50 | NUR ---
PT CAME BACK AFTER LEAVING STATION GATEMAN EARLIER. CAME IN FOR SUICIDAL IDEATION W/ PLAN TO RUN INTO TRAFFIC. DENIES HOMICIDAL IDEATION. DENIES HALLUCINATION. PT VERBALIZED THAT HE IS DEPRESSED. MD AT BEDSIDE. SUICIDAL PRECAUTION INITIATED. 1:1 SITTER AT BEDSIDE
[2021-03-25 01:09] LABS: BILIRUBIN,URINE NEGATIVE (NEGATIVE); COLOR,URINE YELLOW (YELLOW); LEUKOCYTE ESTERASE ,URINE NEGATIVE (NEGATIVE); NITRITE, URINE NEGATIVE (NEGATIVE); PROTEIN,URINE NEGATIVE (NEGATIVE); UGLUCOSE 100 MG/DL mg/dL (NEGATIVE); UROBILINOGEN,URINE 0.2 EU/dL (0.2)
[2021-03-25 01:12] LABS: BASOPHILS % (AUTO) 0.4 % (0.0-2.0); EOSINOPHILS % (AUTO) 0.8 % (0.0-6.0); HEMATOCRIT 42 % (39-51); HEMOGLOBIN 13.9 g/dL (13.5-17.5); LYMPHOCYTES # (AUTO) 2.1 K/uL (0.8-4.8); LYMPHOCYTES % (AUTO) 24.7 % (20.0-44.0); MEAN CORPUSCULAR HGB CONC 33 g/dl (31.0-36.0); MEAN CORPUSCULAR VOLUME 91 fL (80-96); MONOCYTES # (AUTO) 0.4 K/uL (0.1-1.30); MONOCYTES % (AUTO) 4.4 % (2.0-12.0); NEUTROPHILS # (AUTO) 5.9 K/uL (1.8-8.9); NEUTROPHILS % (AUTO) 69.7 % (43.0-81.0); PLATELET COUNT (AUTO) 291 K/uL (150-450); WHITE BLOOD COUNT (AUTO) 8.5 K/uL (4.3-11.0)
[2021-03-25 01:22] LABS: CALCIUM, SERUM 9.7 mg/dL (8.5-10.1); CARBON DIOXIDE 29 mmol/L (21-32); CHLORIDE 100 mmol/L (98-107); CREATININE 0.8 mg/dL (0.6-1.3); GLUCOSE 119 mg/dL (74-106); POTASSIUM 3.6 mmol/L (3.5-5.1); SODIUM SERUM 134 mmol/L (136-145); UREA NITROGEN, BLOOD 9 mg/dL (7-18)
[2021-03-25 01:29] LABS: ACETAMINOPHEN 0 ug/ml (10-30); ALANINE AMINOTRANSFERASE 49 U/L (12-78); ALCOHOL, BLOOD < 3 mg/dL (0-0); ALKALINE PHOSPHATASE 97 U/L (46-116); ASPARTATE AMINOTRANSFERASE 37 U/L (15-37); BILIRUBIN,DIRECT 0.1 mg/dL (0.0-0.2); BILIRUBIN,TOTAL 0.4 mg/dL (0.2-1.0); TOTAL PROTEIN, SERUM 8.1 g/dL (6.4-8.2)
--- NOTE | 2021-03-25 01:48 | NUR ---
CLINICALS FAXED TO [facility]
--- NOTE | 2021-03-25 08:10 | NUR ---
CALLED [facility] ABOUT PT ACCEPTANCE AND WAS NOTIFIED THAT WE ARE STILL WAITNG FOR BEDS TO BE AVAILABLE FOR THE PT.
--- NOTE | 2021-03-25 09:40 | NUR ---
PT NO LONGER AT HOLDING ROOM. NOT SEEN SINCE THE START OF THE MORNING SHIFT. PT ELOPED.
== END 2021-03-25 10:10 | disposition left against medical advice (07) ==
LOC: ER 21:57
DX: R45.851 Suicidal ideations (principal); Z59.02 Unsheltered homelessness; Z20.822 Contact with and (suspected) exposure to COVID-19; F31.9 Bipolar disorder, unspecified; F20.9 Schizophrenia, unspecified; N40.0 Benign prostatic hyperplasia without lower urinary tract symptoms; F17.200 Nicotine dependence, unspecified, uncomplicated; Z53.29 Procedure and treatment not carried out because of patient's decision for other reasons
CPT/HCPCS: 36415; 80048; 80076; 80143; 80307; 80320; 81003; 85025; 87426; 99285; C9803; G0480

== ENCOUNTER 2021-04-09 19:01 | Emergency (ER) | payer OTHER ==
[~2021-04-09] VITALS: Ht 172.7 cm; Wt 74.8 kg
[2021-04-09 20:17] LABS: BASOPHILS % (AUTO) 0.5 % (0.0-2.0); EOSINOPHILS % (AUTO) 2.1 % (0.0-6.0); HEMATOCRIT 41 % (39-51); HEMOGLOBIN 13.6 g/dL (13.5-17.5); LYMPHOCYTES % (AUTO) 29.1 % (20.0-44.0); MEAN CORPUSCULAR HGB CONC 33 g/dl (31.0-36.0); MEAN CORPUSCULAR VOLUME 91 fL (80-96); MONOCYTES # (AUTO) 0.4 K/uL (0.1-1.30); MONOCYTES % (AUTO) 6.2 % (2.0-12.0); NEUTROPHILS # (AUTO) 4.3 K/uL (1.8-8.9); NEUTROPHILS % (AUTO) 62.1 % (43.0-81.0); PLATELET COUNT (AUTO) 248 K/uL (150-450); RED BLOOD CELL COUNT(AUTO) 4.54 MIL/uL (4.5-6.0)
[2021-04-09 20:33] LABS: BILIRUBIN,URINE NEGATIVE (NEGATIVE); COLOR,URINE YELLOW (YELLOW); LEUKOCYTE ESTERASE ,URINE NEGATIVE (NEGATIVE); NITRITE, URINE NEGATIVE (NEGATIVE); PROTEIN,URINE NEGATIVE (NEGATIVE); UGLUCOSE NEGATIVE (NEGATIVE); UROBILINOGEN,URINE 0.2 EU/dL (0.2)
[2021-04-09 20:47] LABS: ALCOHOL, BLOOD < 3 mg/dL (0-0); ALKALINE PHOSPHATASE 89 U/L (46-116); ASPARTATE AMINOTRANSFERASE 25 U/L (15-37); BILIRUBIN,TOTAL 0.4 mg/dL (0.2-1.0); CARBON DIOXIDE 23 mmol/L (21-32); CREATININE 0.9 mg/dL (0.6-1.3); GLUCOSE 119 mg/dL (74-106); TOTAL PROTEIN, SERUM 7.8 g/dL (6.4-8.2); UREA NITROGEN, BLOOD 16 mg/dL (7-18)
[2021-04-09 21:11] LABS: ALBUMIN 3.9 g/dL (3.4-5.0); CHLORIDE 104 mmol/L (98-107); POTASSIUM 3.5 mmol/L (3.5-5.1); SODIUM SERUM 138 mmol/L (136-145)
[2021-04-09 21:15] LABS: ACETAMINOPHEN < 0 ug/ml (10-30)
[2021-04-09 21:23] LABS: ALANINE AMINOTRANSFERASE 24 U/L (12-78)
[2021-04-10 11:06] VITALS: BP 131/76
== END 2021-04-10 15:05 ==
LOC: ER 19:04
DX: R45.851 Suicidal ideations (principal); F31.9 Bipolar disorder, unspecified; F19.10 Other psychoactive substance abuse, uncomplicated; F15.10 Other stimulant abuse, uncomplicated; F12.10 Cannabis abuse, uncomplicated; Z20.822 Contact with and (suspected) exposure to COVID-19; Z59.00 Homelessness unspecified; Z88.8 Allergy status to other drugs, medicaments and biological substances; F20.9 Schizophrenia, unspecified
CPT/HCPCS: 36415; 80048; 80076; 80143; 80307; 80320; 81003; 85025; 87426; 99285; C9803; G0480

== ENCOUNTER 2021-04-25 22:05 | Emergency (ER) | payer OTHER ==
[~2021-04-25] VITALS: Ht 172.7 cm; Wt 67.1 kg
[2021-04-25 22:22] VITALS: BP 146/108
--- NOTE | 2021-04-25 23:57 | NUR ---
CALLED NOT IN WAITING ROOM
--- NOTE | 2021-04-26 00:30 | NUR ---
CALLED FROM WAITING ROOM FOR BED, STILL NOT IN WAITING ROOM
== END 2021-04-26 00:30 | disposition left against medical advice (07) ==
LOC: ER 22:09
DX: Z53.21 Procedure and treatment not carried out due to patient leaving prior to being seen by health care provider (principal)

== ENCOUNTER 2021-07-19 04:21 | Emergency (ER) | payer OTHER ==
[~2021-07-19] VITALS: Ht 172.7 cm; Wt 65.8 kg
[2021-07-19 04:45] VITALS: BP 149/87
[2021-07-19] MEDS ORDERED: diphenhydrAMINE HCL 25 MG CAPSULE PO ONE (05:00)
[2021-07-19] MEDS ORDERED: LORAZEPAM 1 MG TABLET PO ONE (05:00)
--- NOTE | 2021-07-19 05:05 | NUR ---
Patient eloped from facility. ER MD notified.
[2021-07-19] MEDS ORDERED: LORAZEPAM 1 MG TABLET ONE (05:17)
[2021-07-19] MEDS ORDERED: diphenhydrAMINE HCL 50 MG CAPSULE ONE (05:17)
== END 2021-07-19 05:05 | disposition left against medical advice (07) ==
LOC: ER 04:26
DX: R20.8 Other disturbances of skin sensation (principal); F31.9 Bipolar disorder, unspecified; F20.9 Schizophrenia, unspecified; F17.200 Nicotine dependence, unspecified, uncomplicated; Z88.8 Allergy status to other drugs, medicaments and biological substances; Z59.00 Homelessness unspecified
CPT/HCPCS: Q0163

== ENCOUNTER 2021-09-12 05:21 | Emergency (ER) | payer OTHER ==
[~2021-09-12] VITALS: Ht 172.7 cm; Wt 74.8 kg
--- NOTE | 2021-09-12 05:40 | NUR ---
BILLY BRADY C/O +SI -H/I WANTING VOL PSYCH ADMIT. PATIENT IS A/O X 4 RR EVEN AND UNLABORED, NO SOB NOTED. PATIENT TAKEN TO ER BED 18, RN AND SECURITY AT BEDSIDE, PT WANDED. PT BELONGINGS TAKEN AND PALCED IN LOCKER, PT PLACED IN HOSPITAL GOWN. WILL CONTINUE TO MONITOR.
--- NOTE | 2021-09-12 05:41 | NUR ---
covid swab collected sent to lab
[2021-09-12 06:38] LABS: BASOPHILS % (AUTO) 0.5 % (0.0-2.0); EOSINOPHILS % (AUTO) 1.7 % (0.0-6.0); HEMATOCRIT 44 % (39-51); HEMOGLOBIN 14.6 g/dL (13.5-17.5); LYMPHOCYTES # (AUTO) 2.4 K/uL (0.8-4.8); LYMPHOCYTES % (AUTO) 30.5 % (20.0-44.0); MEAN CORPUSCULAR HGB CONC 34 g/dl (31.0-36.0); MEAN CORPUSCULAR VOLUME 89 fL (80-96); MONOCYTES # (AUTO) 0.6 K/uL (0.1-1.30); MONOCYTES % (AUTO) 7.2 % (2.0-12.0); NEUTROPHILS # (AUTO) 4.7 K/uL (1.8-8.9); NEUTROPHILS % (AUTO) 60.1 % (43.0-81.0); PLATELET COUNT (AUTO) 272 K/uL (150-450); RED BLOOD CELL COUNT(AUTO) 4.91 MIL/uL (4.5-6.0); WHITE BLOOD COUNT (AUTO) 7.9 K/uL (4.3-11.0)
[2021-09-12 07:05] LABS: ALANINE AMINOTRANSFERASE 18 U/L (12-78); ALBUMIN 4.5 g/dL (3.4-5.0); ALKALINE PHOSPHATASE 91 U/L (46-116); ASPARTATE AMINOTRANSFERASE 21 U/L (15-37); BILIRUBIN,DIRECT 0.2 mg/dL (0.0-0.2); BILIRUBIN,TOTAL 0.7 mg/dL (0.2-1.0); CALCIUM, SERUM 9.9 mg/dL (8.5-10.1); CARBON DIOXIDE 23 mmol/L (21-32); CHLORIDE 99 mmol/L (98-107); CREATININE 1.3 mg/dL (0.6-1.3); GLUCOSE 119 mg/dL (74-106); POTASSIUM 3.9 mmol/L (3.5-5.1); SODIUM SERUM 135 mmol/L (136-145); TOTAL PROTEIN, SERUM 8.6 g/dL (6.4-8.2); UREA NITROGEN, BLOOD 14 mg/dL (7-18)
[2021-09-12 07:41] LABS: ACETAMINOPHEN 0 ug/ml (10-30)
[2021-09-12 07:42] LABS: ALCOHOL, BLOOD < 3 mg/dL (0-0)
--- NOTE | 2021-09-12 07:58 | NUR ---
ASSUME PATIENT CARE, RESTING IN BED. STABLE VITALS. PROVIDED W/ BREAKFAST TRAY.
[2021-09-12 09:09] LABS: BILIRUBIN,URINE SMALL (NEGATIVE); COLOR,URINE YELLOW (YELLOW); LEUKOCYTE ESTERASE ,URINE NEGATIVE (NEGATIVE); NITRITE, URINE NEGATIVE (NEGATIVE); PROTEIN,URINE 100 mg/dl (NEGATIVE); UGLUCOSE NEGATIVE (NEGATIVE)
[2021-09-12 10:04] LABS: RBC,URINE 0-2 /HPF (0-2); WBC,URINE 0-2 /HPF (0-3)
[2021-09-12 10:05] LABS: BACTERIA,URINE None seen /HPF (None Seen); SQUAMOUS EPITHELIAL CELL,UR Moderate /HPF (None Seen)
--- NOTE | 2021-09-12 10:05 | NUR ---
FAXED [facility] WITH PT FACE SHEET AND CLINICALS
[2021-09-12 11:49] VITALS: BP 140/86
--- NOTE | 2021-09-12 14:16 | NUR ---
SS consult: SS Consult requested for SI, drug use and homelessness. The pt. is a 41 year-old Black male patient who came in for SI. Upon SS consult, the pt. is Alert & Oriented x 4 and piercing eye contact. The pt. appears well-groomed with elevated mood & affect. Pt.'s speech is WNL. Per pt. he has been diagnosed with schizoaffective disorder in the past and he is on Zoloft and Seroquel. Pt. states he takes his medication sometimes. Per pt. he has been having suicidal ideation for about 15 days and has a plan to run into traffic Pt. denies visual hallucinations and states he has "some auditory hallucinations. Per pt., he has also been using drugs intermittently. Pt. admits to using Methamphetamine, Cocaine. Pt. also tested positive for Cannabinoids and Alcohol. ANJEL explored pt.'s living situation. Patient states he is currently experiencing homelessness for the past 10years. Per pt. he is ambulatory and independent with all his ADL's. SW explored pt.'s support system. Pt. states he has some friends and family in the area. Plan: SW was referred pt. to [facility] [[address] [place] [address] FAX:[phone]] for inpatient psychiatric treatment. ANJEL provided pt. with Homeless and mental health resources and pt. refused them. Pt. signed homeless waiver and it was placed in the patient's chart. ANJEL offered pt. the following resources: Year-round shelters: [facility] [address] [place] [address] ; [facility] [address] [place] [address]; [facility] [place] [facility] [id number] [facility]. [facility] [address] Hygiene: [facility]: [address] [place] ; [facility] [address] [facility] ; [facility] [address] . Food Resources: [facility] at [facility]- [address]. [place]; Meet Each Need with Dignity ([facility]) [address]; [facility] [address] [facility]; [facility] [address] [facility]. Mental Health resources provided: [facility] [address] [place] [address] ; [facility] [address] [facility] [address], [place], [place] [id number] ; [facility] [address] [place], [place] [id number] ; [facility] [address] [place], [place] [address] Healthcare Clinics: [facility] [address], [address] [place]. [place] ; [facility] [address] [facility] [address] [place] [address]; [facility] [address] [facility]. [place] [phone] Counseling--Outpatient [facility] [address] [facility], [address] [place], [place] [address] (Specializes in in-depth psychotherapy for emotional distress: anxiety, depression, interpersonal conflicts, life transitions, childhood abuse) [facility] [address] [place], [place] [phone] (Assist with solving problem marital difficulties, separation & divorce, aging parents, & grief, chronic & terminal illness) [facility] [address] [place], [place] [phone] (Deal with loss & grief, anxiety, marital difficulties) Homebound/Mental Health Services [address] [facility], [address] [place] [address] (Provide in-home mental services to people who are incapable of leaving their homes) [facility] [address] [place] [address] [facility] [address] [facility] [place] [address] PSYCHIATRIC OUTPATIENT SERVICES [facility] Partial Hospitalization and Intensive Outpatient Program (Managed Care and [facility] Only)[address] [facility] [phone] [facility] Partial Hospitalization and Outpatient [address] [place], [place] [phone] [facility] Mental Health [place] R[address] [facility]. [address] [place], [place] [phone] [facility] Partial Hospitalization and Outpatient Atshlfp64425 [facility] Chao Villagomez, [phone] Substance Abuse resources provided included: [facility] Substance Abuse Self-Helpline ([facility]) ; [facility] [address] [facility]. [place] [phone] ; [facility] [address] [facility] [address] ; [facility] [address] [address] ; [facility] [address] [facility] [address] ; [facility] [address] [facility] [id number] ; [facility] [address] [facility] [address] ; [facility] Substance Abuse Helpline([facility])-[facility] ; [facility] ; [facility] [place]; [facility] [place]; [facility] [address] Villagomez; [facility] [place]; [facility] [place]; [facility] [place]; [facility], [facility]. [facility]; Alcoholics Anonymous -[facility]; Cn-Hvfa-Pcjlfyn ; Marijuana Anonymous [facility]; Narcotics Anonymous www.[email or web address];
--- NOTE | 2021-09-12 14:19 | NUR ---
ANJEL called [email or web address] TEL:[phone] fax:[phone] to receive update regarding admission. Art from intake stated he would call ice house supervisor for update and call cornelia HOBBS back.
--- NOTE | 2021-09-12 14:41 | NUR ---
SW receive call back from Art from intake at [facility] stating that pt. has been accepted to [facility] under the care of Dr. Holden and nurse to nurse report should be called in to [phone] ext.[phone]. SW notified ED nurse.
--- NOTE | 2021-09-12 16:20 | NUR ---
THE PATIENT IS DISCHARGED TO [facility] IN STABLE CONDITION AND VIA ARRANGED TRANSPO.
== END 2021-09-12 16:35 ==
LOC: ER 05:22
DX: R45.851 Suicidal ideations (principal); Z20.822 Contact with and (suspected) exposure to COVID-19; Z59.00 Homelessness unspecified; F31.9 Bipolar disorder, unspecified; Z79.899 Other long term (current) drug therapy; N40.0 Benign prostatic hyperplasia without lower urinary tract symptoms; R82.5 Elevated urine levels of drugs, medicaments and biological substances
CPT/HCPCS: 99285; 85025; 80048; 80076; 81001; 36415; 87426; 80143; 80320; 80307; C9803; G0480

== ENCOUNTER 2024-08-30 21:29 | Emergency (ER) | payer MEDICAID ==
[~2024-08-30] VITALS: Ht 177.8 cm; Wt 77.1 kg
[~2024-08-30 21:29] MED LIST changes: +NALO4SPR BNOSTRILS
[2024-08-30 22:27] VITALS: BP 125/78; O2SAT 96
== END 2024-08-30 22:27 | disposition home or self-care (01) ==
LOC: ER 21:34
DX: F15.10 Other stimulant abuse, uncomplicated (principal); F17.200 Nicotine dependence, unspecified, uncomplicated; N40.0 Benign prostatic hyperplasia without lower urinary tract symptoms; F12.10 Cannabis abuse, uncomplicated; F31.9 Bipolar disorder, unspecified; F20.9 Schizophrenia, unspecified; Z59.00 Homelessness unspecified; Z88.8 Allergy status to other drugs, medicaments and biological substances

== ENCOUNTER 2024-10-09 13:19 | Inpatient (IN) | payer MEDICAID, OTHER ==
[~2024-10-09] VITALS: Ht 170.2 cm; Wt 72.6 kg
[2024-10-09 13:54] LABS: PLATELET COUNT (AUTO) 167 K/uL (150-450); RED BLOOD CELL COUNT(AUTO) 5.25 MIL/uL (4.5-6.0); RED CELL DISTRIBUTION WIDTH 14.5 % (11.5-15.0); WHITE BLOOD COUNT (AUTO) 3.7 K/uL (4.3-11.0)
[2024-10-09 14:01] LABS: CALCIUM, SERUM 8.8 mg/dL (8.5-10.1); CREATININE 0.9 mg/dL (0.6-1.3); SODIUM SERUM 135 mmol/L (136-145); UREA NITROGEN, BLOOD 14 mg/dL (7-18)
[2024-10-09 14:15] LABS: TOTAL PROTEIN, SERUM 7.3 g/dL (6.4-8.2)
[2024-10-09 14:16] LABS: ALCOHOL, BLOOD > 3 mg/dL (0-10)
[2024-10-09] MEDS ORDERED: ONDANSETRON HCL/PF 4 MG/2 ML VIAL ONE (14:27)
[2024-10-09] MEDS ORDERED: FAMOTIDINE/PF INJ 20 MG/2 ML VIAL IV ONE (14:27)
[2024-10-09 14:34] LABS: ASPARTATE AMINOTRANSFERASE > 1000 U/L (15-37)
[2024-10-09] MEDS: IV NS 0.9% 1,000 ML BAG IV ONE (14:35)
[2024-10-09] MEDS: FAMOTIDINE/PF INJ 20 MG/2 ML VIAL IV ONE (14:36)
[2024-10-09] MEDS: ONDANSETRON HCL/PF 4 MG/2 ML VIAL IVP ONE (14:41)
[2024-10-09 15:15] LABS: APPEARANCE,URINE CLEAR (CLEAR); BLOOD, URINE NEGATIVE Ery/uL (NEGATIVE); LEUKOCYTE ESTERASE ,URINE 1+ (NEGATIVE); NITRITE, URINE NEGATIVE (NEGATIVE); UGLUCOSE NEGATIVE (NEGATIVE)
[2024-10-09] MEDS ORDERED: PARO-64 PO (15:21)
[2024-10-09] MEDS ORDERED: TEMA15CA PO (15:21)
[2024-10-09] MEDS ORDERED: IBUP-1955 PO (15:21)
[2024-10-09] MEDS ORDERED: QUET100T PO (15:21)
[2024-10-09] MEDS ORDERED: LORA-259 PO (15:21)
[2024-10-09] MEDS ORDERED: MAG30ORA PO (15:21)
[2024-10-09 15:27] LABS: AMPHETAMINE, URINE NEGATIVE (NEGATIVE); BARBITURATE, URINE NEGATIVE (NEGATIVE); BENZODIAZEPINE, URINE NEGATIVE (NEGATIVE); OPIATE, URINE NEGATIVE (NEGATIVE)
[2024-10-09 15:29] LABS: CANNABINOID, URINE POSITIVE (NEGATIVE); COCCAINE, URINE POSITIVE (NEGATIVE)
[2024-10-09 15:54] LABS: ADD URINE CULTURE YES
[2024-10-09] MEDS: CEFTRIAXONE 1GM BAG (ER ONLY) 1 GM/50 ML PIGGYBACK IV ONE (16:58)
[2024-10-09 17:15] VITALS: O2SAT 99
[2024-10-09 18:00] VITALS: BP 118/81; TEMP 98.4; O2SAT 97
[2024-10-09] MEDS ORDERED: Z GUARD REMEDY 4 OZ OINT TP PRN (18:00)
[2024-10-09] MEDS: MAGNESIUM HYDROXIDE 30 ML UDC PO PRN (20:08)
[2024-10-09] MEDS: IV NS 0.9% 1,000 ML IV PRN (20:09)
[2024-10-10 07:08] LABS: ASPARTATE AMINOTRANSFERASE > 1000 U/L (15-37); CALCIUM, SERUM 8.6 mg/dL (8.5-10.1); CREATININE 0.9 mg/dL (0.6-1.3); PHOSPHORUS 3.0 mg/dL (2.5-4.9); SODIUM SERUM 136 mmol/L (136-145); TOTAL PROTEIN, SERUM 7.1 g/dL (6.4-8.2); UREA NITROGEN, BLOOD 12 mg/dL (7-18)
[2024-10-10 08:00] VITALS: BP 126/91; TEMP 98.6; O2SAT 98
[2024-10-10 08:41] LABS: PLATELET COUNT (AUTO) 171 K/uL (150-450); RED BLOOD CELL COUNT(AUTO) 5.36 MIL/uL (4.5-6.0); RED CELL DISTRIBUTION WIDTH 14.2 % (11.5-15.0); WHITE BLOOD COUNT (AUTO) 3.7 K/uL (4.3-11.0)
[2024-10-10 16:00] VITALS: BP 131/89; TEMP 98.4; O2SAT 99
[2024-10-10] MEDS: ACETAMINOPHEN 325 MG TABLET PO PRN (16:34)
[2024-10-10] MEDS ORDERED: D5W IV SCH (18:00)
[2024-10-10] MEDS ORDERED: ACETYLCYSTEINE IV SCH (18:00)
[2024-10-10] MEDS: D5W IV ONE (18:41)
[2024-10-10] MEDS: ACETYLCYSTEINE IV ONE (18:41)
[2024-10-10 20:00] VITALS: BP 128/86; TEMP 97.5; O2SAT 100
[2024-10-10] MEDS: MAG HYDROX/AL HYDROX/SIMETH 30 ML UDC PO PRN (20:20)
[2024-10-10] MEDS: D5W IV SCH (20:33)
[2024-10-10] MEDS: [UNRECOGNIZED DRUG - OTHER] IV SCH (20:33)
[2024-10-10] MEDS: ACETYLCYSTEINE IV SCH (20:33)
[2024-10-11 05:08] LABS: HBSAG SCREEN Negative (Negative); HEPATITIS A AB, IgM Positive (Negative); HEPATITIS A AB, TOTAL Positive (Negative); HEPATITIS B CORE AB, IgM Negative (Negative); HEPATITIS B CORE AB, TOTAL Negative (Negative); HEPATITIS B SURFACE AB (QUAL) Reactive (.)
[2024-10-11 08:00] VITALS: BP 112/82; TEMP 97.9; O2SAT 99
[2024-10-11] MEDS ORDERED: TEMAZEPAM 15 MG CAPSULE PO PRN (09:00)
[2024-10-11] MEDS ORDERED: LORAZEPAM 1 MG TABLET PO PRN (09:00)
[2024-10-11] MEDS: PAROXETINE HCL 20 MG TABLET PO SCH (09:59)
[2024-10-11 10:00] LABS: PLATELET COUNT (AUTO) 154 K/uL (150-450); RED BLOOD CELL COUNT(AUTO) 5.62 MIL/uL (4.5-6.0); RED CELL DISTRIBUTION WIDTH 14.8 % (11.5-15.0); WHITE BLOOD COUNT (AUTO) 3.1 K/uL (4.3-11.0)
[2024-10-11 10:22] LABS: INR 1.35 (0.91-1.10)
[2024-10-11 11:17] LABS: ASPARTATE AMINOTRANSFERASE > 1000 U/L (15-37); CALCIUM, SERUM 9.0 mg/dL (8.5-10.1); CREATININE 0.9 mg/dL (0.6-1.3); SODIUM SERUM 141 mmol/L (136-145); TOTAL PROTEIN, SERUM 7.5 g/dL (6.4-8.2); UREA NITROGEN, BLOOD 10 mg/dL (7-18)
[2024-10-11] MEDS: ONDANSETRON HCL/PF 4 MG/2 ML VIAL IVP PRN (16:45)
[2024-10-11] MEDS ORDERED: QUETIAPINE FUMARATE 100 MG TABLET PO SCH (22:00)
== END 2024-10-11 18:23 | disposition short-term general hospital (02) ==
LOC: ER 13:24 → MED 17:00
PROVIDERS: ADMIT Internal Medicine; ATTEND Internal Medicine
DX: B15.9 Hepatitis A without hepatic coma (principal); F19.10 Other psychoactive substance abuse, uncomplicated; F31.9 Bipolar disorder, unspecified; R74.01 Elevation of levels of liver transaminase levels; N40.0 Benign prostatic hyperplasia without lower urinary tract symptoms; Z59.00 Homelessness unspecified; Z68.25 Body mass index [BMI] 25.0-25.9, adult
CPT/HCPCS: 36415; 76700-TC; 80048-TC; 80076-TC; 81001; 83690-TC; 83735-TC; 84100-TC; 85025-TC; 85610-TC; 86704; 86705; 86706; 86707; 86709; 86709-TC; 86803; 87081-TC; 87086-TC; 87340; 87350; 93976-TC; 98960; A4223; G0378; G0480; J0132; J0696; J1308; J2405; J7030; J7060; J7070

== ENCOUNTER 2025-01-25 23:14 | Emergency (ER) | payer MEDICAID, OTHER ==
[~2025-01-25 23:14] MED LIST changes: -DEPAKOTE; +IBUP-1955 PO; -KLONOPIN; +LORA-259 PO; +MAG30ORA PO; -NALO4SPR BNOSTRILS; +PARO-64 PO; +QUET100T PO; +TEMA15CA PO; -ZYPREXA
== END 2025-01-25 23:45 | disposition left against medical advice (07) ==
LOC: ER 23:19
DX: R05.9 Cough, unspecified (principal); R50.9 Fever, unspecified; R51.9 Headache, unspecified; Z53.21 Procedure and treatment not carried out due to patient leaving prior to being seen by health care provider